=== PATIENT | female | born 1970 | race Caucasian/White ===

== ENCOUNTER 2016-11-14 20:40 | Emergency (ER) | payer OTHER, MEDICAID ==
[~2016-11-14] VITALS: Ht 160 cm; Wt 106.2 kg
[~2016-11-14 20:40] MED LIST: AMOX875 PO; BENZ1TAB PO; CORTIS10A EACH EAR; HALO1TAB25 PO; PROZ20CA11 PO; TRAZ100 PO
[2016-11-14 20:51] VITALS: BP 138/74; PULSE 85; RESP 16; TEMP 98.9; O2SAT 97
--- NOTE | 2016-11-14 22:10 | PD ---
HPI Chief Complaint: ENT Complaint Time Seen by Provider: 21:34 Travel History International Travel<30 days: No Contact w/Intl Traveler<30days: No Traveled to known affect area: No History of Present Illness HPI 46-year-old female presents to the emergency room for evaluation of bilateral ear pain for the past week. Patient states left is worse than right. She has not been taking anything for her symptoms. She had leftover eardrops that she applied to her left ear which slightly relieved her pain. Pain is severe and worse with any range of motion of the jaw or swallowing. It radiates into her neck. She denies any fever, chills, nausea, vomiting, or drainage. No associated upper respiratory symptoms. She has not been swimming lately. PFSH Past Medical History Bipolar Disorder: Yes Anxiety: Yes Depression: Yes Cancer: No Cardiovascular Problems: Yes High Cholesterol: Yes Chest Pain: Yes Coronary Artery Disease: No Diabetes: No Diminished Hearing: No Endocrine: Yes Gastrointestinal Disorders: Yes GERD: Yes Genitourinary: No Immune Disorder: No Implanted Vascular Access Dvce: No Insomnia: Yes Musculoskeletal: No Neurologic: No Psychiatric: Yes (schizophenia ) Reproductive: No Respiratory: Yes Integumentary: Yes Immunizations Current: Yes Schizophrenia: Yes (PER DR TAPIA) Sleep Apnea: Yes (CPAP, hasn't used in at least 6mths) Thyroid Disease: Yes (hasn't been taking her thyroid med) Tetanus Vaccination: Unknown Influenza Vaccination: Yes ?: Unknown Menopausal: Yes : 4 Para: 2 Miscarriage: 1 : 1 Past Surgical History Section: Yes (2) Gynecologic Surgery: Yes (2 C SECTIONS) Oral Surgery: Yes Other Surgery: Yes Social History Alcohol Use: No Tobacco Use: Yes (1 PPD) Substance Use: No Allergies-Medications (Allergen,Severity, Reaction): Coded Allergies: No Known Allergies (Verified , 11/14/16) Reported Meds & Prescriptions Reported Meds & Active Scripts Active Amoxil (Amoxicillin) 875 Mg Tab 875 Mg PO BID 10 Days Cortisporin Otic Suspension (Neomycin/Polymyxin/Hydrocortisone) 10 Ml Susp 4 Drop EACH EAR QID 7 Days Reported Haldol (Haloperidol) 2 Mg Tab 2 Mg PO BID Cogentin (Benztropine Mesylate) 1 Mg Tab 4 Mg PO DAILY Trazodone Hcl (Trazodone HCl) 100 Mg Tab 400 Mg PO HS Prozac (Fluoxetine HCl) 20 Mg Cap 20 Mg PO BID Review of Systems Except as stated in HPI: all other systems reviewed are Neg Physical Exam Narrative GENERAL: Well-nourished, well-developed female in no acute distress. Afebrile. Ambulatory. SKIN: Focused skin assessment warm/dry. HEAD: Normocephalic. EYES: No scleral icterus. No injection or drainage. EARS: Bilateral pinnae and external canals appear within normal limits. There is some purulent drainage just outside bilateral eardrums. Bilateral tympanic membranes are erythematous and dull with some drainage but no perforation. NECK: Supple, trachea midline. No JVD or lymphadenopathy. CARDIOVASCULAR: Regular rate and rhythm without murmurs, gallops, or rubs. RESPIRATORY: Breath sounds equal bilaterally. No accessory muscle use. Data Data Last Documented VS Vital Signs Date Time Temp Pulse Resp B/P (MAP) Pulse Ox O2 Delivery O2 Flow Rate FiO2 11/14/16 20:51 98.9 85 16 138/74 (95) 97 MDM Medical Decision Making Medical Screen Exam Complete: Yes Emergency Medical Condition: Yes Medical Record Reviewed: Yes Differential Diagnosis Otitis media, otitis externa, eustachian tube dysfunction Narrative Course 46-year-old female presents to the emergency room for evaluation of bilateral ear pain and left worse than right for the past week. Patient denies any swimming recently. Denies fevers or ear drainage. Physical exam reveals bilateral tympanic membranes are erythematous and dull without perforation. There is drainage just outside bilateral eardrums that could be due to very slight perforation or concurrent otitis externa. There is very subtle preauricular lymphadenopathy of the right that is extremely tender to palpation. Patient will be treated for externa and otitis media with Cipro drops and amoxicillin. Told to follow up with her primary care physician or return for worsening symptoms. She understands and agrees to plan. Diagnosis Primary Impression: Otitis media Qualified Codes: H66.003 - Acute suppurative otitis media without spontaneous rupture of ear drum, bilateral Referrals: Primary Care Physician Additional Instructions: Rest and drink plenty of fluids. Take amoxicillin as directed, until gone. Apply drops twice daily for 7 days. Take ibuprofen with food as directed, as needed for pain. Apply ice to the affected area for 20 minutes at a time, as needed for pain and swelling. Follow-up with a primary care physician. Return to the emergency room for worsening symptoms. Med/Other Pt SpecificInfo: Prescription(s) given Scripts Amoxicillin (Amoxicillin) 875 Mg Tab 875 MG PO BID for Infection for 7 Days, TAB 0 Refills Prov: Sierra Cueva MD 11/14/16 Ciprofloxacin-Hydrocortisone Otic Drops (Cipro Hc Otic Drops) 0.2-1% Susp 3 DROP EACH EAR BID for Infection, #1 BOTTLE 0 Refills Prov: Sierra Cueva MD 11/14/16 Disposition: 01 DISCHARGE HOME Condition: Stable Renetta Falk Nov 14, 2016 22:10
[2016-11-14] MEDS ORDERED: CIPRHC10A EACH EAR (22:11)
[2016-11-14] MEDS ORDERED: AMOX875T PO (22:11)
[2016-11-14] MEDS ORDERED: IBUP-232 PO (22:13)
== END 2016-11-14 22:34 | disposition home or self-care (01) ==
LOC: PHEFT 20:40
DX: H66.003 Acute suppurative otitis media without spontaneous rupture of ear drum, bilateral (principal); F17.200 Nicotine dependence, unspecified, uncomplicated
CPT/HCPCS: 99284

== ENCOUNTER 2017-01-30 20:18 | Inpatient (IN) | payer OTHER, MEDICAID, MEDICARE ==
[~2017-01-30] VITALS: Ht 160 cm; Wt 97.1 kg
[~2017-01-30 20:18] MED LIST changes: +AMOX875T PO; +CIPRHC10A EACH EAR; +IBUP-232 PO
[2017-01-30 20:20] VITALS: BP 142/74; PULSE 85; RESP 16; TEMP 98.4; O2SAT 96
[2017-01-30 23:04] LABS: AUTOMATED NEUTROPHIL # 8.6 TH/MM3 (1.8-7.7); BASOPHIL # 0.1 TH/MM3 (0-0.2); BASOPHIL % 0.8 % (0.0-2.0); EOSINOPHIL # 0.1 TH/MM3 (0-0.4); EOSINOPHIL % 0.6 % (0.0-4.0); HEMATOCRIT 39.8 % (35.0-46.0); HEMO FLAGS DIFF FINAL; LYMPH % 16.8 % (9.0-44.0); LYMPHOCYTE # 1.9 TH/MM3 (1.0-4.8); MEAN CELL VOLUME 88.6 FL (80.0-100.0); MEAN CORPUSCULAR HEMOGLOBIN 29.2 PG (27.0-34.0); NEUT % 76.8 % (16.0-70.0); PLATELET COUNT 201 TH/MM3 (150-450); WHITE BLOOD COUNT 11.2 TH/MM3 (4.0-11.0)
--- NOTE | 2017-01-30 23:17 | PD ---
HPI Chief Complaint: Psychiatric Symptoms Time Seen by Provider: 23:09 Travel History International Travel<30 days: No Contact w/Intl Traveler<30days: No Traveled to known affect area: No History of Present Illness HPI 46-year-old female requesting psychiatric evaluation. Patient has history of schizoaffective disorder and major depressive disorder. Patient has been taking her medications as directed including Chrisney . Patient states that she has been hearing voices telling her bad things, increasing depression and having suicidal thoughts. Patient denies any headache. Patient denies any chest pain or shortness of breath. Patient denies abdominal pain. Patient denies any focal weakness or numbness of extremity. Patient denies any nausea vomiting diarrhea. PFSH Past Medical History Bipolar Disorder: Yes Anxiety: Yes Depression: Yes Cancer: No Cardiovascular Problems: Yes High Cholesterol: Yes Chest Pain: Yes Coronary Artery Disease: No Diabetes: No Diminished Hearing: No Endocrine: Yes Gastrointestinal Disorders: Yes GERD: Yes Genitourinary: No Immune Disorder: No Implanted Vascular Access Dvce: No Insomnia: Yes Musculoskeletal: No Neurologic: No Psychiatric: Yes (schizophenia ) Reproductive: No Respiratory: Yes Integumentary: Yes Immunizations Current: Yes Schizophrenia: Yes (PER DR TAPIA) Sleep Apnea: Yes (CPAP, hasn't used in at least 6mths) Thyroid Disease: Yes (hasn't been taking her thyroid med) ?: Not Menopausal: Yes : 4 Para: 2 Miscarriage: 1 : 1 Past Surgical History Section: Yes (2) Gynecologic Surgery: Yes (2 C SECTIONS) Oral Surgery: Yes Other Surgery: Yes Social History Alcohol Use: No Tobacco Use: Yes (1 PPD) Substance Use: No Allergies-Medications (Allergen,Severity, Reaction): Coded Allergies: No Known Allergies (Verified , 11/14/16) Reported Meds & Prescriptions Reported Meds & Active Scripts Active Ibuprofen 600 Mg Tab 600 Mg PO Q8HR PRN Amoxicillin 875 Mg Tab 875 Mg PO BID 7 Days Cipro Hc Otic Drops (Ciprofloxacin/Hydrocortisone) 0.2-1% Susp 3 Drop EACH EAR BID Amoxicillin 875 Mg Tab 875 Mg PO BID 10 Days Cortisporin Otic Suspension (Neomycin/Polymyxin/Hydrocortisone) 10 Ml Susp 4 Drop EACH EAR QID 7 Days Reported Haldol (Haloperidol) 2 Mg Tab 2 Mg PO BID Benztropine Mesylate 1 Mg Tab 4 Mg PO DAILY Trazodone HCl 100 Mg Tab 400 Mg PO HS Prozac (Fluoxetine HCl) 20 Mg Cap 20 Mg PO BID Review of Systems General / Constitutional: No: Fever Eyes: No: Visual changes HENT: No: Headaches Cardiovascular: No: Chest Pain or Discomfort Respiratory: No: Shortness of Breath Gastrointestinal: No: Abdominal Pain Genitourinary: No: Dysuria Musculoskeletal: No: Pain Skin: No Rash Neurologic: No: Weakness Psychiatric: Positive: Depression, Suicidal Ideations Endocrine: No: Polydipsia Hematologic/Lymphatic: No: Easy Bruising Physical Exam Narrative GENERAL: Well-nourished, well-developed patient. SKIN: Focused skin assessment warm/dry. HEAD: Normocephalic. EYES: No scleral icterus. No injection or drainage. NECK: Supple, trachea midline. No JVD or lymphadenopathy. CARDIOVASCULAR: Regular rate and rhythm without murmurs, gallops, or rubs. RESPIRATORY: Breath sounds equal bilaterally. No accessory muscle use. GASTROINTESTINAL: Abdomen soft, non-tender, nondistended. MUSCULOSKELETAL: No cyanosis, or edema. BACK: Nontender without obvious deformity. No CVA tenderness. Neurologic exam normal. Data Data Last Documented VS Vital Signs Date Time Temp Pulse Resp B/P (MAP) Pulse Ox O2 Delivery O2 Flow Rate FiO2 01/30/17 20:20 98.4 85 16 142/74 (96) 96 Orders Orders Complete Blood Count With Diff (01/30/17 20:30) Comprehensive Metabolic Panel (01/30/17 20:30) Psych Screen (01/30/17 20:30) Drug Screen, Random Urine (01/30/17 20:30) Alcohol (Ethanol) (01/30/17 20:30) Chrisney (Li) (01/30/17 22:48) Labs Laboratory Tests Test 01/30/17 22:45 White Blood Count 11.2 TH/MM3 Red Blood Count 4.50 MIL/MM3 Hemoglobin 13.1 GM/DL Hematocrit 39.8 % Mean Corpuscular Volume 88.6 FL Mean Corpuscular Hemoglobin 29.2 PG Mean Corpuscular Hemoglobin Concent 33.0 % Red Cell Distribution Width 16.0 % Platelet Count 201 TH/MM3 Mean Platelet Volume 9.2 FL Neutrophils (%) (Auto) 76.8 % Lymphocytes (%) (Auto) 16.8 % Monocytes (%) (Auto) 5.0 % Eosinophils (%) (Auto) 0.6 % Basophils (%) (Auto) 0.8 % Neutrophils # (Auto) 8.6 TH/MM3 Lymphocytes # (Auto) 1.9 TH/MM3 Monocytes # (Auto) 0.6 TH/MM3 Eosinophils # (Auto) 0.1 TH/MM3 Basophils # (Auto) 0.1 TH/MM3 CBC Comment DIFF FINAL Differential Comment MDM Medical Decision Making Medical Screen Exam Complete: Yes Emergency Medical Condition: Yes Differential Diagnosis Differential diagnosis including schizoaffective disorder, depression, suicidal Narrative Course 46-year-old female with history of schizoaffective disorder and major depression , has been hearing voices and having suicidal thoughts. Pranav Jaimes MD Jan 30, 2017 23:17
[2017-01-30] MEDS ORDERED: PANT20TA2 PO (23:29)
[2017-01-30] MEDS ORDERED: CLON1TAB PO (23:29)
[2017-01-30] MEDS ORDERED: AMAN100T PO (23:29)
[2017-01-30] MEDS ORDERED: PROZ40CA PO (23:29)
[2017-01-30] MEDS ORDERED: PRAM0.25 PO (23:29)
[2017-01-30] MEDS ORDERED: FURO20TA PO (23:29)
[2017-01-30] MEDS ORDERED: TRAZ300T2 PO (23:29)
[2017-01-30] MEDS ORDERED: LURA80 PO (23:29)
[2017-01-30] MEDS ORDERED: FOLI400T PO (23:29)
[2017-01-30] MEDS ORDERED: POTA10CA PO (23:29)
[2017-01-30] MEDS ORDERED: HALO10TA PO (23:29)
[2017-01-30 23:31] LABS: ALT (GPT) 15 U/L (10-53); ANION GAP 7 MEQ/L (5-15); AST (GOT) 11 U/L (15-37); BLOOD UREA NITROGEN 16 MG/DL (7-18); CHLORIDE 100 MEQ/L (98-107); GLOMERULAR FILTRATION RATE 54 ML/MIN (>89); POTASSIUM 3.6 MEQ/L (3.5-5.1); SODIUM (NA) 138 MEQ/L (136-145)
[2017-01-30 23:35] LABS: ALCOHOL LESS THAN 3 MG/DL (0-5)
[2017-01-30 23:38] LABS: ALKALINE PHOSPHATASE 135 U/L (45-117); TOTAL BILIRUBIN ADULT 0.1 MG/DL (0.2-1.0)
[2017-01-31] MEDS ORDERED: LITH300C2 PO (01:18)
[2017-01-31] MEDS ORDERED: LORazepam 2 MG/ML VIAL IM PRN (02:00)
[2017-01-31] MEDS ORDERED: ALUMINUM/MAGNESIUM/SIMETH 30 ML CUP PO PRN ×2 (02:00→12:45)
[2017-01-31] MEDS ORDERED: ACETAMINOPHEN 325 MG TAB PO PRN (02:00)
[2017-01-31] MEDS ORDERED: traZODone HCL 50 MG TAB PO PRN (02:00)
[2017-01-31] MEDS ORDERED: diphenhydrAMINE HCL 50 MG CAP PO PRN ×2 (02:00→12:45)
[2017-01-31] MEDS ORDERED: diphenhydrAMINE HCL 50 MG/ML VIAL IM PRN (02:00)
[2017-01-31] MEDS ORDERED: MAGNESIUM HYDROXIDE SUSP 30 ML CUP PO PRN ×2 (02:00→12:45)
[2017-01-31] MEDS ORDERED: diphenhydrAMINE HCL 50 MG/ML VIAL - HS PRN IM (02:00)
[2017-01-31 02:30] VITALS: BP 139/77; PULSE 71; RESP 18; TEMP 97.9; O2SAT 94
[2017-01-31 06:53] VITALS: BP 109/59; PULSE 72; RESP 18; TEMP 97.7; O2SAT 94
[2017-01-31 08:31] LABS: BICARBONATE 21.8 MEQ/L (21.0-32.0); POTASSIUM 4.3 MEQ/L (3.5-5.1)
[2017-01-31 08:54] LABS: HDL CHOLESTEROL 43.4 MG/DL (40.0-60.0)
[2017-01-31] MEDS: AMANTADINE HCL 100 MG CAP PO SCH ×2 (09:00→22:05)
[2017-01-31] MEDS ORDERED: FOLIC ACID 1 MG TAB PO SCH (09:00)
[2017-01-31] MEDS ORDERED: FUROSEMIDE 20 MG TAB PO SCH (09:00)
[2017-01-31] MEDS: FLUoxetine HCL 20 MG CAP PO SCH (09:52)
[2017-01-31] MEDS: PANTOPRAZOLE SOD 20 MG DELAYED RELEASE TAB PO SCH (09:53)
[2017-01-31] MEDS: LITHIUM CARBONATE 300 MG CAP PO SCH ×2 (09:53→21:00)
[2017-01-31] MEDS: LURASIDONE 80 MG TAB PO SCH (09:53)
[2017-01-31] MEDS: HALOPERIDOL 10 MG TAB PO SCH ×2 (09:53→22:04)
[2017-01-31] MEDS: POTASSIUM CHLORIDE 10 MEQ CONTROLLED RELEASE TAB PO SCH ×2 (09:53→22:05)
[2017-01-31] MEDS: NICOTINE 21 MG/24 HR PATCH T-DERMAL SCH (09:54)
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
[2017-01-31 18:27] VITALS: BP 132/83; PULSE 73; RESP 17; TEMP 97; O2SAT 96
[2017-01-31] MEDS ORDERED: POTASSIUM CHLORIDE 10 MEQ CAP PO SCH (21:00)
[2017-01-31] MEDS: REMOVE OLD NICOTINE PATCH T-DERMAL SCH (21:00)
[2017-01-31] MEDS ORDERED: AMANTADINE HCL 100 MG CAP PO SCH (21:00)
[2017-01-31] MEDS ORDERED: HALOPERIDOL 10 MG TAB PO SCH (21:00)
[2017-01-31] MEDS ORDERED: LITHIUM CARBONATE 300 MG CAP PO SCH (21:00)
[2017-01-31] MEDS ORDERED: PRAMIPEXOLE DIHYDROCHLORIDE 0.25 MG TAB PO SCH (21:00)
[2017-01-31] MEDS: traZODone HCL 100 MG TAB PO SCH (22:04)
[2017-01-31] MEDS: FUROSEMIDE 20 MG TAB PO SCH (22:04)
[2017-01-31 22:05] LABS: HEMOGLOBIN A1a 1.1 %; HEMOGLOBIN A1b 0.9 %; HEMOGLOBIN F 0.9 %; HEMOGLOBIN LA1C 1.4 %; HEMOGLOBIN P3 3.4 %
[2017-01-31] MEDS: PRAMIPEXOLE DIHYDROCHLORIDE 0.25 MG TAB PO SCH (22:07)
[2017-02-01] MEDS: LORazepam 1 MG TAB PO PRN (03:47)
[2017-02-01 06:42] VITALS: BP 139/63; PULSE 75; RESP 16; TEMP 97.4; O2SAT 96
[2017-02-01] MEDS: NICOTINE 21 MG/24 HR PATCH T-DERMAL SCH (08:33)
[2017-02-01] MEDS: POTASSIUM CHLORIDE 10 MEQ CONTROLLED RELEASE TAB PO SCH ×2 (08:34→20:07)
[2017-02-01] MEDS: FLUoxetine HCL 20 MG CAP PO SCH (08:34)
[2017-02-01] MEDS: AMANTADINE HCL 100 MG CAP PO SCH ×2 (08:35→20:06)
[2017-02-01] MEDS: LURASIDONE 80 MG TAB PO SCH (08:35)
[2017-02-01] MEDS: HALOPERIDOL 10 MG TAB PO SCH ×2 (08:35→20:07)
[2017-02-01] MEDS: FOLIC ACID 1 MG TAB PO SCH (08:35)
[2017-02-01] MEDS: PANTOPRAZOLE SOD 20 MG DELAYED RELEASE TAB PO SCH (08:35)
[2017-02-01] MEDS: FUROSEMIDE 20 MG TAB PO SCH ×2 (08:36→20:06)
[2017-02-01] MEDS: LITHIUM CARBONATE 300 MG CAP PO SCH (08:36)
[2017-02-01] MEDS ORDERED: PANTOPRAZOLE SOD 20 MG DELAYED RELEASE TAB PO SCH (09:00)
[2017-02-01] MEDS ORDERED: LURASIDONE 80 MG TAB PO SCH (09:00)
[2017-02-01] MEDS ORDERED: FLUOXETINE 80 MG PO SCH (09:00)
--- NOTE | 2017-02-01 11:00 | HHI.PYPN ---
Subjective Chief Complaint: increased depression with auditory hallucinations and suicidal ideation int Remarks Patient seen in her room with nurse Tete, patient states voices persist, are still somewhat intrusive, but she no longer has thoughts white to kill her sister boyfriend or anyone and the voices are no longer telling her to kill anyone. She still remains quite depressed with still take the suicide pill if offered. For now we will increase patient's Haldol from 10 mg twice a day to 10 mg a.m. 5 mg one p.m. and 10 mg p.m., lithium level drawn this morning was 0.5 will increase lithium to 450 mg twice a day check blood level on 02/05. Continue other medications no change Review of Systems Except as stated in HPI: all other systems reviewed are Neg Mental Status Examination Appearance: Appropriate Consciousness: Alert Orientation: x4 Motor Activity: Normal gait Speech: Unremarkable Language: Adequate Fund of Knowledge: Adequate Attention and Concentration: Other (fair) Memory: Unremarkable Mood: Sad, Anxious (mildly so) Affect: Other (decreased range and intensity) Thought Process & Associations: Intact Thought Content: Hallucinations Hallucination Type: Auditory (threatening and intimidating) Delusion Type: None Suicidal Ideation: Yes Suicidal Plan: Yes (patient states would take the suicide pill if offered) Suicidal Intention: Yes (patient states would take the suicide pill if offered) Homicidal Ideation: No Homicidal Plan: No Homicidal Intention: No Insight: Poor Judgment: Poor Results Labs Test 02/01/17 06:12 [place] Level 0.5 MEQ/L Vitals/IOs Vital Signs Date Time Temp Pulse Resp B/P (MAP) Pulse Ox O2 Delivery O2 Flow Rate FiO2 02/01/17 06:42 97.4 75 16 139/63 (88) 96 Assessment & Plan Problem List: (1) Schizoaffective disorder ICD Codes: F25.9 - Schizoaffective disorder Status: Chronic Assessment & Plan Estimated LOS: days patient remains depressed psychotic and suicidal, compliant medications. She medication adjustment above Justification for Cont. Inpt. At this time patient will decompensate if placed in the lower level of care Discharge Planning Return home follow-up outpatient services Request HC Surrog/Guard Advoc?: No Problem Qualifiers (1) Schizoaffective disorder: Qualified Codes: F25.0 - Schizoaffective disorder, bipolar type Jameel Sampson MD Feb 01, 2017 10:59
--- NOTE | 2017-02-01 11:26 | PD.PSY.CON ---
Provisional Diagnosis Admission Date Jan 31, 2017 at 01:36 Sanford I. 1. Schizoaffective disorder, bipolar type Sanford II. Deferred History of Present Illness Service Psychiatry Consult Requested By Dr. Sampson Reason for Consult Second opinion for involuntary psychiatric hospitalization Primary Care Physician Non-Staff HPI From Dr. Sampson's H&P: Patient is a 46-year-old obese white female comes here voluntarily with complaints of increased depression with increased command demanding auditory hallucinations, and suicidal ideation intent and plan. Patient is a client with [facility] she did see her [facility] clinician last Sunday. Though minimized her issues. At the present time patient sitting quietly in her room counselor Trina present throughout session patient stating she has had increased depression of the past few weeks with initial and mid insomnia, depressed mood, increased crying spells, a.m. anergy, decreased appetite. Decreased concentration and attention. Increased isolation. Is also some moderate decrease in her coping skills. There are increased auditory hallucinations of a command intimidating nature. She denies any alcohol or drug use related to this. She does states would take the suicide pill if offered to her of interest a compounding factor with this is the fact that patient has lived with her sister for over a year. During that period of time patient's relationship with her sister's boyfriend also lives with them has become more difficult to the point of the sisters asked her to leave. Patient will be moving of the end of February 23 part of March to live with a friend. She states this is okay with her but she also acknowledges being somewhat abandoned by her sister. Patient also is a regular attendee of the [facility] outpatient support groups. Patient states she has been has a left her Prevacid her difficulty with a mental health the behavioral issues. She has 2 adult children she has contact with one of them. At the present time patient does meet criteria for further inpatient psychiatric assessment monitoring and observation. We'll continue her on a voluntary basis she is willing to stay to get further care patient lithium level drawn late last night commitment 0.3 will repeat level in the morning. We 'll continue other medications no change through today and further observe. Hopeless to be a fairly short stay and return her to the community and to her family On my examination today: Patient seen and examined with nurse. Chart reviewed. Case discussed with nursing staff. On my examination today, the patient presents as quite anhedonic and withdrawn. She endorses 1.5 weeks of worsening depression and deprecatory auditory hallucinations along with command auditory hallucinations to self injure. She endorses ongoing suicidal ideation. She endorses sleep and appetite are decreased. No delusional material elicited. No hypomanic or manic symptoms. She is requesting discharge from the hospital, but when I ask what she would do if she were released she says "I'd probably kill myself." Past psychiatric history: Patient reports a history of depression with first hospitalization at age 15. She endorses multiple prior suicide attempts including previous attempts by hanging. Family history: The patient reports a family history of depression in her father who completed suicide by gunshot wound. Chemical dependency history: The patient denies any abuse of drugs or alcohol. Social history: Patient lives with her sister. She is with 2 children. She has 2 years of college. She is on disability. Review of Systems ROS Limitations: Psychotic Except as stated in HPI: all other systems reviewed are Neg Past Family Social History Coded Allergies: No Known Allergies (Verified Allergy, Unknown, 01/31/17) Past Medical History see electronic medical record Reported Medications Rodey Carbonate (Rodey Carbonate) 300 Mg Cap, 300 MG PO BID, CAP 0 Refills 01/31/17 Potassium Chloride ER (Potassium Chloride ER) 10 Meq Cap, 10 MEQ PO BID for Electrolyte Replacement, #60 CAP 0 Refills 01/30/17 Furosemide (Furosemide) 20 Mg Tab, 20 MG PO BID, #60 TAB 0 Refills 01/30/17 Folic Acid (Folic Acid) 0.4 Mg Tab, 1 MG PO DAILY for Nutritional Supplement, TAB 0 Refills 01/30/17 Pantoprazole (Pantoprazole) 20 Mg Tab, 20 MG PO DAILY for Reflux, #30 TAB 0 Refills 01/30/17 Clonazepam (Clonazepam) 1 Mg Tab, 1 MG PO HS, #90 TAB 0 Refills 01/30/17 Pramipexole (Pramipexole) 0.25 Mg Tab, 0.25 MG PO HS for Parkinson Disease Mgmt , #30 TAB 0 Refills 01/30/17 Amantadine (Amantadine) 100 Mg Tab, 100 MG PO BID, #60 TAB 0 Refills 01/30/17 Haloperidol (Haloperidol) 10 Mg Tab, 10 MG PO BID, TAB 0 Refills 01/30/17 Lurasidone (Latuda) 80 Mg Tab, 80 MG PO DAILY, #30 TAB 0 Refills 01/30/17 Trazodone (Trazodone) 300 Mg Tab, 400 MG PO HS for Control Depression, #30 TAB 0 Refills 01/30/17 Fluoxetine (Prozac) 40 Mg Cap, 80 MG PO DAILY, #30 CAP 0 Refills 01/30/17 Discontinued Reported Medications Haloperidol (Haldol) 2 Mg Tab, 2 MG PO BID, TAB 06/23/14 Benztropine Mesylate (Benztropine Mesylate) 1 Mg Tab, 4 MG PO DAILY, TAB 08/08/13 Trazodone HCl (Trazodone HCl) 100 Mg Tab, 400 MG PO HS, TAB 08/08/13 Fluoxetine Hcl (Prozac) 20 Mg Cap, 20 MG PO BID, CAP 08/08/13 Discontinued Scripts Ibuprofen (Ibuprofen) 600 Mg Tab, 600 MG PO Q8HR Y for PAIN, #21 TAB 0 Refills Prov:Sierra Cueva MD 11/14/16 Amoxicillin (Amoxicillin) 875 Mg Tab, 875 MG PO BID for Infection for 7 Days, TAB 0 Refills Prov:Sierra Cueva MD 11/14/16 Ciprofloxacin-Hydrocortisone Otic Drops (Cipro Hc Otic Drops) 0.2-1% Susp, 3 DROP EACH EAR BID for Infection, #1 BOTTLE 0 Refills Prov:Sierra Cueva MD 11/14/16 Amoxicillin (Amoxicillin) 875 Mg Tab, 875 MG PO BID for 10 Days, TAB Prov:Rodolfo Ortiz MD 11/23/14 Neomycin/Polymyxin/Hydrocort (Cortisporin Otic Suspension) 10 Ml Susp, 4 DROP EACH EAR QID for 7 Days, ML Prov:Rodolfo Ortiz MD 11/23/14 Current Medications Medications (Trade) Dose Ordered Sig/Damon Route Start Time Stop Time Status Last Admin (Ativan) 1 mg Q6H PRN PO 01/31/17 02:00 02/01/17 03:47 (Ativan Inj) 1 mg Q6H PRN IM 01/31/17 02:00 (Benadryl) 50 mg Q6H PRN PO 01/31/17 02:00 (Benadryl Inj) 50 mg Q6H PRN IM 01/31/17 02:00 (Benadryl) 50 mg HS PRN PO 01/31/17 02:00 (Benadryl Inj) 50 mg HS PRN IM 01/31/17 02:00 (Habitrol 21 Mg Patch.24 Hr) 1 patch DAILY T-DERMAL 01/31/17 09:00 02/01/17 08:33 Miscellaneous Information 1 HS T-DERMAL 01/31/17 21:00 01/31/17 21:00 (PROzac) 80 mg DAILY PO 01/31/17 09:00 02/01/17 08:34 (Latuda) 80 mg DAILY PO 01/31/17 09:00 02/01/17 08:35 (Symmetrel) 100 mg BID PO 01/31/17 09:00 02/01/17 08:35 (Mirapex) 0.25 mg HS PO 01/31/17 21:00 01/31/17 22:07 (Protonix) 20 mg DAILY PO 01/31/17 09:00 02/01/17 08:35 (KCl) 10 meq BID PO 01/31/17 09:00 02/01/17 08:34 (Tylenol) 650 mg Q4H PRN PO 01/31/17 12:45 (Milk Of Magnesia Liq) 30 ml DAILY PRN PO 01/31/17 12:45 (Mag-Al Plus Susp Liq) 30 ml Q6H PRN PO 01/31/17 12:45 (Atarax) 50 mg Q6H PRN PO 01/31/17 12:45 (Folate) 1 mg DAILY PO 02/01/17 09:00 02/01/17 08:35 (Lasix) 20 mg BID PO 01/31/17 21:00 02/01/17 08:36 (Desyrel) 400 mg HS PO 01/31/17 21:00 01/31/17 22:04 (Haldol) 10 mg DAILY@0900,2100 PO 02/01/17 21:00 (Eskalith Sr) 450 mg BID PO 02/01/17 21:00 (Haldol) 5 mg DAILY@1400 PO 02/01/17 14:00 Family Psych History See above Social History See above Patient's Strengths (min. 2) In a monitored setting. Verbally fluent. Physical Exam Physical exam was completed by the ED provider. On my examination today, the patient appears to be in no acute physical distress. No motor abnormalities noted. Labs and vitals reviewed: Vital Signs Vital Signs Date Time Temp Pulse Resp B/P (MAP) Pulse Ox O2 Delivery O2 Flow Rate FiO2 02/01/17 06:42 97.4 75 16 139/63 (88) 96 Lab Results Item Value Date Time White Blood Count 11.2 TH/MM3 H 01/30/172244 Hemoglobin 13.1 GM/DL 01/30/172244 Platelet Count 201 TH/MM3 01/30/175 Sodium Level 138 MEQ/L 01/31/17 0716 Potassium Level 4.3 MEQ/L 01/31/17 0716 Chloride Level 106 MEQ/L 01/31/17 0716 Carbon Dioxide Level 21.8 MEQ/L # 01/31/17 0716 Blood Urea Nitrogen 14 MG/DL 01/31/17 0716 Creatinine 0.80 MG/DL 01/31/17 0716 Random Glucose 83 MG/DL 01/31/17 0716 Aspartate Amino Transf (AST/SGOT) 11 U/L L 01/30/17 2245 Alanine Aminotransferase (ALT/SGPT) 15 U/L 01/30/175 Alkaline Phosphatase 135 U/L H 01/30/175 Rodey Level 0.5 MEQ/L 02/01/17 0612 Mental Status Examination Appearance: Appropriate Consciousness: Alert Orientation: Person, Place (at least) Motor Activity: Other (no motor abnormalities noted) Speech: Slow Language: Adequate Fund of Knowledge: Adequate Attention and Concentration: Other (fair) Memory: Unremarkable (grossly intact on clinical exam) Mood: Sad Affect: Other (restricted and consistent with stated mood) Thought Process & Associations: Intact Thought Content: Hallucinations Hallucination Type: Auditory (deprecatory and command auditory hallucinations) Delusion Type: None Suicidal Ideation: Yes Suicidal Plan: No Suicidal Intention: Yes Homicidal Ideation: No Homicidal Plan: No Homicidal Intention: No Insight: Poor Judgment: Poor Assessment & Plan Problem List: (1) Schizoaffective disorder ICD Codes: F25.9 - Schizoaffective disorder Status: Chronic Assessment & Plan Given the circumstances of patient's presentation here, and her presentation on my examination today, I concur with Dr. Sampson that the patient meets criteria for involuntary psychiatric hospitalization under the [place] act. I have completed the second opinion paperwork. Further care as per Dr. Sampson. Thank you very much for this consultation. Signing off. Problem Qualifiers (1) Schizoaffective disorder: Qualified Codes: F25.0 - Schizoaffective disorder, bipolar type Av Wagner MD Feb 01, 2017 11:26
[2017-02-01] MEDS: HALOPERIDOL 5 MG TAB PO SCH (15:11)
[2017-02-01 16:54] VITALS: BP 131/86; PULSE 77; RESP 17; TEMP 97.7; O2SAT 99
[2017-02-01] MEDS: LITHIUM CARBONATE 450 MG CONTROLLED RELEASE TAB PO SCH (20:06)
[2017-02-01] MEDS: traZODone HCL 100 MG TAB PO SCH (20:06)
[2017-02-01] MEDS: REMOVE OLD NICOTINE PATCH T-DERMAL SCH (20:07)
[2017-02-01] MEDS: PRAMIPEXOLE DIHYDROCHLORIDE 0.25 MG TAB PO SCH (20:07)
[2017-02-02] MEDS: LORazepam 1 MG TAB PO PRN ×2 (02:56→14:06)
[2017-02-02 03:15] VITALS: BP 109/60; PULSE 94; RESP 18; TEMP 98.5; O2SAT 94
[2017-02-02 05:55] VITALS: BP 108/69; PULSE 77; RESP 18; TEMP 97.7; O2SAT 93
[2017-02-02] MEDS: AMANTADINE HCL 100 MG CAP PO SCH ×2 (08:27→21:22)
[2017-02-02] MEDS: LURASIDONE 80 MG TAB PO SCH (08:27)
[2017-02-02] MEDS: PANTOPRAZOLE SOD 20 MG DELAYED RELEASE TAB PO SCH (08:27)
[2017-02-02] MEDS: POTASSIUM CHLORIDE 10 MEQ CONTROLLED RELEASE TAB PO SCH ×2 (08:27→21:22)
[2017-02-02] MEDS: NICOTINE 21 MG/24 HR PATCH T-DERMAL SCH (08:28)
[2017-02-02] MEDS: FOLIC ACID 1 MG TAB PO SCH (08:28)
[2017-02-02] MEDS: LITHIUM CARBONATE 450 MG CONTROLLED RELEASE TAB PO SCH ×2 (08:28→21:21)
[2017-02-02] MEDS: FUROSEMIDE 20 MG TAB PO SCH ×2 (08:28→21:20)
[2017-02-02] MEDS: FLUoxetine HCL 20 MG CAP PO SCH (08:28)
[2017-02-02] MEDS: HALOPERIDOL 10 MG TAB PO SCH ×2 (08:30→21:00)
[2017-02-02] MEDS: ACETAMINOPHEN 325 MG TAB PO PRN (10:45)
--- NOTE | 2017-02-02 13:38 | HHI.PYPN ---
Subjective Chief Complaint: increased depression with auditory hallucinations and suicidal ideation int Remarks Patient seen in her room with the one-to-one sitter, chart review, patient compliant medications. It appears patient's multiple then 2 razor blades onto the unit. She inflicted laceration to her left wrist with them. He was discovered and wound dressed by the nurse. Patient placed on one-to-one's. When asked today about this she said the voices were getting worse. When asked the motivation for smoking of the razor blades the waiting for a few days before using them is unable to answer that question. Patient continues to voice auditory hallucinations, depression, and suicidality. Patient had medication adjustments yesterday will need to observe her their effects, need to continue the one-to-one Review of Systems Except as stated in HPI: all other systems reviewed are Neg Mental Status Examination Appearance: Appropriate Consciousness: Alert Orientation: Person, Place (at least) Motor Activity: Other (no motor abnormalities noted) Speech: Slow Language: Adequate Fund of Knowledge: Adequate Attention and Concentration: Other (fair) Memory: Unremarkable (grossly intact on clinical exam) Mood: Sad Affect: Other (restricted and consistent with stated mood) Thought Process & Associations: Intact Thought Content: Hallucinations Hallucination Type: Auditory (deprecatory and command auditory hallucinations) Delusion Type: None Suicidal Ideation: Yes Suicidal Plan: Yes (patient just lacerated wrists with razor blades that she smuggled onto the unit) Suicidal Intention: Yes Homicidal Ideation: No Homicidal Plan: No Homicidal Intention: No Insight: Poor Judgment: Poor Results Vitals/IOs Vital Signs Date Time Temp Pulse Resp B/P (MAP) Pulse Ox O2 Delivery O2 Flow Rate FiO2 02/02/17 05:55 97.7 77 18 108/69 (82) 93 Assessment & Plan Problem List: (1) Schizoaffective disorder ICD Codes: F25.9 - Schizoaffective disorder Status: Chronic Assessment & Plan Estimated LOS: days patient continues depressed psychotic now with self- inflicted lacerations rest Justification for Cont. Inpt. At this time patient decompensate a placed a lower level of care Discharge Planning Patient remains somewhat ambiguous considering her recent self-mutilation Problem Qualifiers (1) Schizoaffective disorder: Qualified Codes: F25.0 - Schizoaffective disorder, bipolar type Jameel Sampson MD Feb 02, 2017 13:38
[2017-02-02] MEDS: HALOPERIDOL 5 MG TAB PO SCH (13:45)
[2017-02-02] MEDS ORDERED: DIPHTH/TETANUS/ACEL PERTUSSIS (BOOSTER) 0.5 ML VIAL/PFS IM ONE (14:15)
--- NOTE | 2017-02-02 14:23 | PD.CONS ---
HPI Service [facility] Consult Requested By DR SANTORO Reason for Consult LACERATION WITH RAZOR BLADE TO LEFT WRIST Primary Care Physician Non-Staff Diagnoses: History of Present Illness 46-year-old female requesting psychiatric evaluation. Patient has history of schizoaffective disorder and major depressive disorder. Patient has been taking her medications as directed including Casper . Patient states that she has been hearing voices telling her bad things, increasing depression and having suicidal thoughts. Patient denies any headache. Patient denies any chest pain or shortness of breath. Patient denies abdominal pain. Patient denies any focal weakness or numbness of extremity. Patient denies any nausea vomiting diarrhea. PATIENT HAD RAZOR BLADES AND CUT HERSELF AT 3AM THIS MORNING IN HER ROOM DW RN AND PT AND PSYCHIATRY Review of Systems Constitutional: DENIES: Diaphoretic episodes, Fatigue, Fever, Weight gain, Weight loss, Chills, Dizziness Endocrine: DENIES: Abnorml menstrual pattern, Heat/cold intolerance, Polydipsia Eyes: DENIES: Blurred vision, Diplopia, Eye inflammation, Eye pain, Vision loss Ears, nose, mouth, throat: DENIES: Tinnitus, Hearing loss, Vertigo, Nasal discharge Respiratory: DENIES: Apneas, Cough, Snoring, Wheezing Cardiovascular: DENIES: Chest pain, Palpitations, Syncope, Dyspnea on Exertion Gastrointestinal: DENIES: Abdominal pain, Black stools, Bloody stools Genitourinary: DENIES: Abnormal vaginal bleeding, Dysmenorrhea Musculoskeletal: DENIES: Joint pain, Muscle aches, Stiffness Integumentary: DENIES: Abnormal pigmentation, Pruritus, Rash Hematologic/lymphatic: DENIES: Bruising, Lymphadenopathy Immunologic/allergic: DENIES: Eczema, Urticaria Neurologic: DENIES: Abnormal gait, Headache, Localized weakness, Paresthesias Psychiatric: COMPLAINS OF: Anxiety, Mood changes, Depression, Agitation, DENIES : Confusion Except as stated in HPI: all other systems reviewed are Neg Past Family Social History Allergies: Coded Allergies: No Known Allergies (Verified Allergy, Unknown, 01/31/17) Past Medical History HYPOTHYROIDISM BIPOLAR, ANXIETY DEPRESSION SCHIZOPHRENIA GERD HYPERTENSION HYPERLIPIDEMIA CAITLIN NONCOMPLIANCE Past Surgical History TEETH REMOVAL Reported Medications Reported Meds & Active Scripts Active Reported Casper Carbonate 300 Mg Cap 300 Mg PO BID Potassium Chloride ER (Potassium Chloride) 10 Meq Cap 10 Meq PO BID Furosemide 20 Mg Tab 20 Mg PO BID Folic Acid 0.4 Mg Tab 1 Mg PO DAILY Pantoprazole (Pantoprazole Sodium) 20 Mg Tab 20 Mg PO DAILY Clonazepam 1 Mg Tab 1 Mg PO HS Pramipexole (Pramipexole Dihydrochloride) 0.25 Mg Tab 0.25 Mg PO HS Amantadine (Amantadine HCl) 100 Mg Tab 100 Mg PO BID Haloperidol 10 Mg Tab 10 Mg PO BID Latuda (Lurasidone) 80 Mg Tab 80 Mg PO DAILY Trazodone (Trazodone HCl) 300 Mg Tab 400 Mg PO HS Prozac (Fluoxetine HCl) 40 Mg Cap 80 Mg PO DAILY Active Ordered Medications Current Medications Lorazepam (Ativan) 1 mg Q6H PRN PO MODERATE TO SEVERE ANXIETY Last administered on 02/02/17t 02:56; Start 01/31/17 at 02:00 Lorazepam (Ativan Inj) 1 mg Q6H PRN IM MODERATE TO SEVERE ANXIETY; Start at 02:00 Diphenhydramine HCl (Benadryl) 50 mg Q6H PRN PO MILD ANXIETY, EPS; Start at 02:00 Diphenhydramine HCl (Benadryl Inj) 50 mg Q6H PRN IM MILD ANXIETY, EPS; Start 01/31/17 at 02:00 Diphenhydramine HCl (Benadryl) 50 mg HS PRN PO INSOMNIA; Start 01/31/17 at 02: 00 Diphenhydramine HCl (Benadryl Inj) 50 mg HS PRN IM INSOMNIA; Start 01/31/17 at 02:00 Trazodone HCl (Desyrel) 50 mg HS PRN PO INSOMNIA; Start 01/31/17 at 02:00; Stop 01/31/17 at 15:02; Status DC Acetaminophen (Tylenol) 650 mg Q4H PRN PO Pain 1-5 or Temp >101F; Start at 02:00; Stop 01/31/17 at 13:59; Status DC Magnesium Hydroxide (Milk Of Magnesia Liq) 30 ml DAILY PRN PO CONSTIPATION; Start 01/31/17 at 02:00; Stop 01/31/17 at 14:08; Status DC Al Hydrox/Mg Hydrox/Simethicone (Mag-Al Plus Susp Liq) 30 ml Q6H PRN PO DYSPEPSIA; Start 01/31/17 at 02:00; Stop 01/31/17 at 13:59; Status DC Nicotine (Habitrol 21 Mg Patch.24 Hr) 1 patch DAILY T-DERMAL Last administered on 02/02/17 08:28; Start 01/31/17 at 09:00 Miscellaneous Information 1 HS T-DERMAL Last administered on 02/01/17 20:07; Start 01/31/17 at 21:00 Fluoxetine HCl (PROzac) 80 mg DAILY PO Last administered on 02/02/17 08:28; Start 01/31/17 at 09:00 Lurasidone HCl (Latuda) 80 mg DAILY PO Last administered on 02/02/17 08:27; Start 01/31/17 at 09:00 Haloperidol (Haldol) 10 mg BID PO Last administered on 02/01/17 08:35; Start 01/31/17 at 09:00; Stop 02/01/17 at 10:48; Status DC Amantadine HCl (Symmetrel) 100 mg BID PO Last administered on 02/02/17 08:27 ; Start 01/31/17 at 09:00 Pramipexole Dihydrochloride (Mirapex) 0.25 mg HS PO Last administered on 20:07; Start 01/31/17 at 21:00 Pantoprazole Sodium (Protonix) 20 mg DAILY PO Last administered on 02/02/17 08:27; Start 01/31/17 at 09:00 Folic Acid (Folate) 1 mg DAILY PO Last administered on 01/31/17 09:53; Start 01/31/17 at 09:00; Stop 01/31/17 at 14:00; Status DC Furosemide (Lasix) 20 mg BID PO Last administered on 01/31/17 09:53; Start at 09:00; Stop 01/31/17 at 14:08; Status DC Potassium Chloride (KCl) 10 meq BID PO Last administered on 02/02/17 08:27; Start 01/31/17 at 09:00 Casper Carbonate (Casper Carbonate) 300 mg BID PO Last administered on 08:36; Start 01/31/17 at 09:00; Stop 02/01/17 at 10:48; Status DC Diphenhydramine HCl (Benadryl) 50 mg HS PRN PO INSOMNIA; Start 01/31/17 at 12: 45; Stop 01/31/17 at 14:10; Status DC Acetaminophen (Tylenol) 650 mg Q4H PRN PO Pain 1-5 or Temp >101F Last administered on 02/02/17 10:45; Start 01/31/17 at 12:45 Magnesium Hydroxide (Milk Of Magnesia Liq) 30 ml DAILY PRN PO CONSTIPATION; Start 01/31/17 at 12:45 Al Hydrox/Mg Hydrox/Simethicone (Mag-Al Plus Susp Liq) 30 ml Q6H PRN PO DYSPEPSIA; Start 01/31/17 at 12:45 Hydroxyzine HCl (Atarax) 50 mg Q6H PRN PO ANXIETY; Start 01/31/17 at 12:45 Amantadine HCl (Symmetrel) 100 mg BID PO ; Start 01/31/17 at 21:00; Stop at 21:00; Status DC Folic Acid (Folate) 1 mg DAILY PO Last administered on 02/02/17 08:28; Start 02/01/17 at 09:00 Furosemide (Lasix) 20 mg BID PO Last administered on 02/02/17 08:28; Start 01/31/17 at 21:00 Haloperidol (Haldol) 10 mg BID PO ; Start 01/31/17 at 21:00; Stop 01/31/17 at 21 :00; Status DC Casper Carbonate (Casper Carbonate) 300 mg BID PO ; Start 01/31/17 at 21:00; Stop 01/31/17 at 21:00; Status DC Lurasidone HCl (Latuda) 80 mg DAILY PO ; Start 02/01/17 at 09:00; Stop 02/01/17 at 09:00; Status DC Pantoprazole Sodium (Protonix) 20 mg DAILY PO ; Start 02/01/17 at 09:00; Stop 02/01/17 at 09:00; Status DC Potassium Chloride (KCl) 10 meq BID PO ; Start 01/31/17 at 21:00; Stop 01/31/17 at 21:00; Status DC Pramipexole Dihydrochloride (Mirapex) 0.25 mg HS PO ; Start 01/31/17 at 21:00; Stop 01/31/17 at 21:00; Status DC Trazodone HCl (Desyrel) 400 mg HS PO Last administered on 02/01/17 20:06; Start 01/31/17 at 21:00 Non-Formulary Medication 80 mg DAILY PO ; Start 02/01/17 at 09:00; Stop at 09:00; Status DC Haloperidol (Haldol) 10 mg DAILY@0900,2100 PO Last administered on 02/02/17 08:30; Start 02/01/17 at 21:00 Casper Carbonate (Eskalith Sr) 450 mg BID PO Last administered on 02/02/17 08:28; Start 02/01/17 at 21:00 Haloperidol (Haldol) 5 mg DAILY@1400 PO Last administered on 02/02/17 13:45; Start 02/01/17 at 14:00 Family History PSYCHIATRIC DISORDERS Social History TOBACCO ABUSE DENIES ALCOHOL OR ILLICITS Physical Exam Vital Signs Vital Signs Date Time Temp Pulse Resp B/P (MAP) Pulse Ox O2 Delivery O2 Flow Rate FiO2 02/02/17 05:55 97.7 77 18 108/69 (82) 93 02/02/17 03:15 98.5 94 18 109/60 (76) 94 02/01/17 16:54 97.7 77 17 131/86 (101) 99 Physical Exam GENERAL: This is a well-nourished, well-developed patient, in no apparent distress. SKIN: No rashes, ecchymoses or lesions. Cool and dry. LEFT WRIST WITH DEEP LACERATION 5 TO 6 CM IN LENGTH BUT NO MAJOR VESSELS OR TENDONS OR NERVES LACERATED HEAD: Atraumatic. Normocephalic. No temporal or scalp tenderness. EYES: Pupils equal round and reactive. Extraocular motions intact. No scleral icterus. No injection or drainage. ENT: Nose without bleeding, purulent drainage or septal hematoma. Throat without erythema, tonsillar hypertrophy or exudate. Uvula midline. Airway patent. NECK: Trachea midline. No JVD or lymphadenopathy. Supple, nontender, no meningeal signs. CARDIOVASCULAR: Regular rate and rhythm without murmurs, gallops, or rubs. S1, S2 NO S3 OR S4 RESPIRATORY: Clear to auscultation. Breath sounds equal bilaterally. No wheezes , rales, or rhonchi. GASTROINTESTINAL: Abdomen soft, non-tender, nondistended. No hepato-splenomegaly , or palpable masses. No guarding. MUSCULOSKELETAL: Extremities without clubbing, cyanosis, or edema. No joint tenderness, effusion, or edema noted. No calf tenderness. Negative Homans sign bilaterally. NEUROLOGICAL: Awake and alert. Cranial nerves II through XII intact. Motor and sensory grossly within normal limits. Five out of 5 muscle strength in all muscle groups. Normal speech. INSIGHT AND JUDGEMENT ARE LIMITED MOOD AND BEHAVIOR ARE INAPPROPRIATE Result Diagram: 01/30/17 2245 01/31/17 0716 Assessment and Plan Assessment and Plan SELF IMPOSED LEFT WRIST LACERATION WITH RAZOR BLADE- CONSULT HAND SURGERY TETANUS KEFLEX FOR WOUND FOR 10 DAYS CONSULT HAND FOR SURGICAL REPAIR LACTINEX HYPOTHYROIDISM - TSH FREE T4 PSYCHIATRIC DISORDER PER PSYCHIATRY TOBACCO ABUSE- RECOMMENDED CESSATION- NICODERM GERD PPI CAITLIN CPAP NEEDED Code Status FULL CODE Discussed Condition With PSYCHIATRY AND RN AND PT Sj Garcia DO Feb 02, 2017 14:23
[2017-02-02] MEDS: CEPHALEXIN MONOHYDRATE 500 MG CAP PO SCH ×3 (14:45→23:30)
--- NOTE | 2017-02-02 15:52 | MB ---
cc: ANA PAULA GARCIA M.D. DATE OF CONSULTATION 02/02/2017 The patient is being seen at the request of Dr. Sj Garcia. REASON FOR CONSULTATION Deep laceration to the left hand. HISTORY OF PRESENT ILLNESS The patient is a 46-year-old female with a history of psychosis. She was admitted on 01/31/2017 and apparently some smuggled some razor blades in her underwear. At 3:00 a.m. this morning the patient cut herself on her left wrist. Attending Dr. Garcia felt this was a deep laceration and requested evaluation by a hand surgeon. The patient presently is reporting no deficits or pain in her hand. PAST MEDICAL HISTORY/REVIEW OF SYSTEMS Negative except for psychiatric problems such as anxiety, mood changes, depression, agitation. ALLERGIES No known food or drug allergies. PAST MEDICAL HISTORY Includes hypothyroidism, bipolar, anxiety, depression, schizophrenia, gastroesophageal reflux disease, hypertension, hyperlipidemia. The patient has CAITLIN and noncompliance. PAST SURGICAL HISTORY C-sections and tooth extractions. MEDICATIONS medications are listed on the chart. PHYSICAL EXAMINATION GENERAL: On examination the patient is lying comfortably in bed. HEENT: Her extraocular muscles are intact. Pupils are equal, round, reactive to light. Mouth is clear. NECK: Neck is supple without masses. LUNGS: Clear. HEART: Heart has a regular rate and rhythm. EXTREMITIES: Examination of extremities reveals a 5 cm transverse laceration of the left forearm approximately 4 cm proximal to distal wrist crease. The patient has full flexion and full extension of all fingers. There is absolutely no loss of motion. A two-point discrimination is within normal limits to all of her fingers. There is adequate perfusion. There is no active bleeding and the wound itself is Steri-Stripped closed with an approximately 2-3 mm gap. IMPRESSION The patient has a superficial laceration to the left forearm. PLAN The patient is cleared for repair of the wound. Recommendation is to have the wound sutured. The patient does not need any follow-up as there is no deep structures involved. Essentially, this is a superficial laceration. MD AARON Munoz/ERIN /3:41 PM /3:47 PM
[2017-02-02] MEDS: LACTOBACILLUS ACIDOPHILUS TAB PO SCH (17:16)
[2017-02-02 18:03] VITALS: BP 143/89; PULSE 76; RESP 18; TEMP 98.6; O2SAT 96
[2017-02-02] MEDS: REMOVE OLD NICOTINE PATCH T-DERMAL SCH (21:00)
[2017-02-02] MEDS ORDERED: LIDOCAINE HCL 1% 20 ML VIAL I-DERMAL ONE (21:15)
[2017-02-02] MEDS: traZODone HCL 100 MG TAB PO SCH (21:20)
[2017-02-02] MEDS: PRAMIPEXOLE DIHYDROCHLORIDE 0.25 MG TAB PO SCH (21:20)
[2017-02-02] MEDS: hydrOXYzine HCL 50 MG TAB PO PRN (21:22)
--- NOTE | 2017-02-02 23:51 | HHI.FPPN ---
Addendum to progress note ADDENDUM Reason for addendum: Additonal documentation Additional information Procedure Note: Laceration Repair Residents paged to repair a wide 2 inch, 1-2mm deep horizontal laceration on L wrist. Laceration was caused by patient cutting herself with a hidden razor blade. The wound appeared slightly erythematous, but no drainage or pus observed. The wound was irrigated with 500cc of normal saline solution. The wound was prepped and draped in sterile fashion. Anesthesia was achieved with 7ml of (1% lidocaine). The wound was reapproximated with eight 6-0 Prolene interrupted sutures. The patient tolerated the procedure without complication. Cinthia Galloway Dr., MD R1 Feb 02, 2017 23:51
[2017-02-03 05:54] VITALS: BP 114/67; PULSE 92; RESP 16; TEMP 97.7; O2SAT 96
[2017-02-03] MEDS: CEPHALEXIN MONOHYDRATE 500 MG CAP PO SCH ×3 (06:25→18:15)
[2017-02-03 07:34] LABS: BASOPHIL # 0.1 TH/MM3 (0-0.2); BASOPHIL % 0.6 % (0.0-2.0); EOSINOPHIL # 0.1 TH/MM3 (0-0.4); EOSINOPHIL % 1.4 % (0.0-4.0); HEMATOCRIT 40.6 % (35.0-46.0); HEMO FLAGS DIFF FINAL; LYMPHOCYTE # 1.9 TH/MM3 (1.0-4.8); MEAN CELL VOLUME 88.8 FL (80.0-100.0); MEAN CORPUSCULAR HEMOGLOBIN 29.8 PG (27.0-34.0); MEAN CORPUSCULAR HGB CONC 33.5 % (32.0-36.0); MONO % 6.5 % (0.0-8.0); NEUT % 69.5 % (16.0-70.0); PLATELET COUNT 182 TH/MM3 (150-450); RED BLOOD COUNT 4.57 MIL/MM3 (4.00-5.30); RED CELL DISTRIBUTION WIDTH 15.8 % (11.6-17.2); WHITE BLOOD COUNT 8.6 TH/MM3 (4.0-11.0)
[2017-02-03 07:57] LABS: ANION GAP 7 MEQ/L (5-15); AST (GOT) 38 U/L (15-37); BICARBONATE 29.4 MEQ/L (21.0-32.0); BLOOD UREA NITROGEN 13 MG/DL (7-18); CHLORIDE 103 MEQ/L (98-107); GLOMERULAR FILTRATION RATE 66 ML/MIN (>89); POTASSIUM 3.6 MEQ/L (3.5-5.1); SODIUM (NA) 139 MEQ/L (136-145)
[2017-02-03 08:08] LABS: ALKALINE PHOSPHATASE 126 U/L (45-117); ALT (GPT) 21 U/L (10-53); FREE T4 0.94 NG/DL (0.76-1.46); TOTAL BILIRUBIN ADULT 0.3 MG/DL (0.2-1.0)
[2017-02-03] MEDS: HALOPERIDOL 10 MG TAB PO SCH ×2 (09:25→21:03)
[2017-02-03] MEDS: FUROSEMIDE 20 MG TAB PO SCH ×2 (09:25→21:00)
[2017-02-03] MEDS: AMANTADINE HCL 100 MG CAP PO SCH ×2 (09:25→21:05)
[2017-02-03] MEDS: LITHIUM CARBONATE 450 MG CONTROLLED RELEASE TAB PO SCH ×2 (09:25→21:00)
[2017-02-03] MEDS: FLUoxetine HCL 20 MG CAP PO SCH (09:25)
[2017-02-03] MEDS: FOLIC ACID 1 MG TAB PO SCH (09:26)
[2017-02-03] MEDS: PANTOPRAZOLE SOD 20 MG DELAYED RELEASE TAB PO SCH (09:26)
[2017-02-03] MEDS: POTASSIUM CHLORIDE 10 MEQ CONTROLLED RELEASE TAB PO SCH ×2 (09:26→21:00)
[2017-02-03] MEDS: LURASIDONE 80 MG TAB PO SCH (09:27)
[2017-02-03] MEDS: LACTOBACILLUS ACIDOPHILUS TAB PO SCH ×3 (09:27→18:15)
[2017-02-03] MEDS: NICOTINE 21 MG/24 HR PATCH T-DERMAL SCH (09:35)
--- NOTE | 2017-02-03 11:53 | HHI.PYPN ---
Subjective Chief Complaint: increased depression with auditory hallucinations and suicidal ideation int Remarks Patient was seen and case discussed with nursing. She continues to be followed by the medical team. Patient is with close observation with her one-to-one. Patient remains wanted, hyporverbal, with psychomotor retardation. She does not express any suicidal or homicidal ideations thoughts intent or plan. She denies having any impulses to cut. Patient says that her hallucinations have resolved this morning though she could be responding to internal stimuli. Mental Status Examination Appearance: Disheveled Consciousness: Alert Orientation: Person, Place (at least) Motor Activity: Other (no motor abnormalities noted) Speech: Hesitant, Slow Language: Adequate Fund of Knowledge: Adequate Attention and Concentration: Other (fair) Memory: Unremarkable (grossly intact on clinical exam) Mood: Sad Affect: Other (restricted and consistent with stated mood) Thought Process & Associations: Intact Thought Content: Hallucinations Hallucination Type: Auditory (denies today) Delusion Type: None Suicidal Ideation: No Suicidal Plan: No Suicidal Intention: No Homicidal Ideation: No Homicidal Plan: No Homicidal Intention: No Insight: Poor Judgment: Poor Results Labs Test 02/03/17 06:58 White Blood Count 8.6 TH/MM3 Red Blood Count 4.57 MIL/MM3 Hemoglobin 13.6 GM/DL Hematocrit 40.6 % Mean Corpuscular Volume 88.8 FL Mean Corpuscular Hemoglobin 29.8 PG Mean Corpuscular Hemoglobin Concent 33.5 % Red Cell Distribution Width 15.8 % Platelet Count 182 TH/MM3 Mean Platelet Volume 9.2 FL Neutrophils (%) (Auto) 69.5 % Lymphocytes (%) (Auto) 22.0 % Monocytes (%) (Auto) 6.5 % Eosinophils (%) (Auto) 1.4 % Basophils (%) (Auto) 0.6 % Neutrophils # (Auto) 6.0 TH/MM3 Lymphocytes # (Auto) 1.9 TH/MM3 Monocytes # (Auto) 0.6 TH/MM3 Eosinophils # (Auto) 0.1 TH/MM3 Basophils # (Auto) 0.1 TH/MM3 CBC Comment DIFF FINAL Differential Comment Blood Urea Nitrogen 13 MG/DL Creatinine 0.91 MG/DL Random Glucose 83 MG/DL Total Protein 7.1 GM/DL Albumin 3.3 GM/DL Calcium Level 8.8 MG/DL Phosphorus Level 3.2 MG/DL Magnesium Level 2.0 MG/DL Alkaline Phosphatase 126 U/L Aspartate Amino Transf (AST/SGOT) 38 U/L Alanine Aminotransferase (ALT/SGPT) 21 U/L Total Bilirubin 0.3 MG/DL Sodium Level 139 MEQ/L Potassium Level 3.6 MEQ/L Chloride Level 103 MEQ/L Carbon Dioxide Level 29.4 MEQ/L Anion Gap 7 MEQ/L Estimat Glomerular Filtration Rate 66 ML/MIN Free Thyroxine 0.94 NG/DL Thyroid Stimulating Hormone 3rd Gen 7.050 uIU/ML Vitals/IOs Vital Signs Date Time Temp Pulse Resp B/P (MAP) Pulse Ox O2 Delivery O2 Flow Rate FiO2 02/03/17 05:54 97.7 92 16 114/67 (41) 96 Assessment & Plan Problem List: (1) Schizoaffective disorder ICD Codes: F25.9 - Schizoaffective disorder Status: Chronic Assessment & Plan Patient denies hallucinations and suicidal ideation today but is not a reliable historian. Continue one-to-one Justification for Cont. Inpt. Patient will decompensate in a less restrictive setting Problem Qualifiers (1) Schizoaffective disorder: Qualified Codes: F25.0 - Schizoaffective disorder, bipolar type Bryan Turner DO Feb 03, 2017 11:53
[2017-02-03] MEDS: HALOPERIDOL 5 MG TAB PO SCH (13:39)
[2017-02-03] MEDS: ACETAMINOPHEN 325 MG TAB PO PRN (13:41)
[2017-02-03 18:22] VITALS: BP 112/67; PULSE 75; RESP 18; TEMP 98.8; O2SAT 99
[2017-02-03] MEDS: PRAMIPEXOLE DIHYDROCHLORIDE 0.25 MG TAB PO SCH (21:00)
[2017-02-03] MEDS ORDERED: DOCUSATE SODIUM 50 MG/SENNA 8.6 MG TAB PO PRN (21:00)
[2017-02-03] MEDS: REMOVE OLD NICOTINE PATCH T-DERMAL SCH (21:00)
[2017-02-03] MEDS: traZODone HCL 100 MG TAB PO SCH (21:00)
--- NOTE | 2017-02-03 21:06 | HHI.PR ---
Subjective Remarks Patient says she is constipated. Denies any pain in left hand. Discussed with nurse. Wound was dressed around 4 PM. Objective Vital Signs Date Time Temp Pulse Resp B/P (MAP) Pulse Ox O2 Delivery O2 Flow Rate FiO2 02/03/17 18:22 98.8 75 18 112/67 (82) 99 02/03/17 14:45 16 02/03/17 05:54 97.7 92 16 114/67 (83) 96 Result Diagram: 02/03/1765702/03/17657 Objective Remarks GENERAL: patient walking around her room. SKIN: Warm and dry. HEAD: Normocephalic. EYES: No scleral icterus. No injection or drainage. NECK: trachea midline. No JVD. CARDIOVASCULAR: Regular rate and rhythm without murmurs, gallops, or rubs. RESPIRATORY: Breath sounds equal bilaterally. No accessory muscle use. GASTROINTESTINAL: Abdomen soft, non-tender, nondistended. MUSCULOSKELETAL: No cyanosis, or edema. left wrist dressed. BACK: Nontender without obvious deformity. No CVA tenderness. A/P Assessment and Plan /Left hand self-inflicted laceration. Continue antibiotics. Continue dressing changes. No reported redness. Due to time course of injury, allowed to heal by secondary intention. Continue to monitor. //Constipation. Laxatives ordered. Amrit Linton MD Feb 03, 2017 21:06
[2017-02-04] MEDS: CEPHALEXIN MONOHYDRATE 500 MG CAP PO SCH ×5 (00:11→23:19)
[2017-02-04 06:30] VITALS: BP 123/72; PULSE 72; RESP 16; TEMP 97.2; O2SAT 91
[2017-02-04] MEDS: POTASSIUM CHLORIDE 10 MEQ CONTROLLED RELEASE TAB PO SCH ×2 (09:43→22:08)
[2017-02-04] MEDS: LACTOBACILLUS ACIDOPHILUS TAB PO SCH ×3 (09:44→18:13)
[2017-02-04] MEDS: AMANTADINE HCL 100 MG CAP PO SCH ×2 (09:44→22:07)
[2017-02-04] MEDS: LURASIDONE 80 MG TAB PO SCH (09:44)
[2017-02-04] MEDS: FUROSEMIDE 20 MG TAB PO SCH ×2 (09:44→22:07)
[2017-02-04] MEDS: PANTOPRAZOLE SOD 20 MG DELAYED RELEASE TAB PO SCH (09:44)
[2017-02-04] MEDS: FOLIC ACID 1 MG TAB PO SCH (09:44)
[2017-02-04] MEDS: FLUoxetine HCL 20 MG CAP PO SCH (09:44)
[2017-02-04] MEDS: LITHIUM CARBONATE 450 MG CONTROLLED RELEASE TAB PO SCH ×2 (09:45→22:07)
[2017-02-04] MEDS: NICOTINE 21 MG/24 HR PATCH T-DERMAL SCH (09:54)
[2017-02-04 10:33] LABS: HEMOGLOBIN A1a 1.1 %; HEMOGLOBIN A1b 0.8 %; HEMOGLOBIN Ao 85.8 %; HEMOGLOBIN F 0.8 %; HEMOGLOBIN P3 3.5 %
[2017-02-04] MEDS: HALOPERIDOL 10 MG TAB PO SCH ×2 (11:03→22:10)
--- NOTE | 2017-02-04 12:57 | HHI.PYPN ---
Subjective Chief Complaint: increased depression with auditory hallucinations and suicidal ideation int Remarks Patient was seen and case discussed with nursing. Patient remains on her one-to -one. She remains blunted and hypoverbal. Patient says the intensity of her hallucinations have improved. They continue to tell her to kill herself. Denies any intent of doing so or thoughts of cutting. Behaving well on the unit Mental Status Examination Appearance: Disheveled Consciousness: Alert Orientation: Person, Place (at least) Motor Activity: Other (no motor abnormalities noted) Speech: Hesitant, Slow Language: Adequate Fund of Knowledge: Adequate Attention and Concentration: Other (fair) Memory: Unremarkable (grossly intact on clinical exam) Mood: Sad Affect: Other (restricted and consistent with stated mood) Thought Process & Associations: Intact Thought Content: Hallucinations Hallucination Type: Auditory (to hurt herself), Command Delusion Type: None Suicidal Ideation: No Suicidal Plan: No Suicidal Intention: No Homicidal Ideation: No Homicidal Plan: No Homicidal Intention: No Insight: Poor Judgment: Poor Results Vitals/IOs Vital Signs Date Time Temp Pulse Resp B/P (MAP) Pulse Ox O2 Delivery O2 Flow Rate FiO2 02/04/17 06:30 97.2 72 16 123/72 (89) 91 Assessment & Plan Problem List: (1) Schizoaffective disorder ICD Codes: F25.9 - Schizoaffective disorder Status: Chronic Assessment & Plan Continue current treatment plan Justification for Cont. Inpt. Patient will decompensate in a less restrictive setting Problem Qualifiers (1) Schizoaffective disorder: Qualified Codes: F25.0 - Schizoaffective disorder, bipolar type Bryan Turner DO Feb 04, 2017 12:57
[2017-02-04] MEDS: HALOPERIDOL 5 MG TAB PO SCH (13:47)
--- NOTE | 2017-02-04 20:46 | HHI.PR ---
Subjective Remarks Patient says she is feeling well. Denies any pain in left wrist. Objective Vital Signs Date Time Temp Pulse Resp B/P (MAP) Pulse Ox O2 Delivery O2 Flow Rate FiO2 02/04/17 06:30 97.2 72 16 123/72 (89) 91 I/O 02/03/17 02/03/17 02/03/17 02/04/17 02/04/17 02/04/17 07:00 15:00 23:00 07:00 15:00 23:00 Intake Total 240 ml Balance 240 ml Intake Oral 240 ml Result Diagram: 02/03/1765702/03/17657 Objective Remarks GENERAL: patient walking around. examination chair. SKIN: Warm and dry. HEAD: Normocephalic. EYES: No scleral icterus. No injection or drainage. NECK: trachea midline. No JVD. CARDIOVASCULAR: Regular rate and rhythm without murmurs, gallops, or rubs. RESPIRATORY: Breath sounds equal bilaterally. No accessory muscle use. GASTROINTESTINAL: Abdomen soft, non-tender, nondistended. MUSCULOSKELETAL: No cyanosis, or edema. left wristwith 3-4 cm laceration across the anterior left wrist. Steri-Strips in place. No surrounding erythema. Small amount of fibrinous exudate. BACK: Nontender without obvious deformity. No CVA tenderness. A/P Assessment and Plan /Left hand self-inflicted laceration. Continue antibiotics. Continue dressing changes. signs of infection on exam. Due to time course of injury, allowed to heal by secondary intention.dry dressing to cover instead of plastic nonstick dressing. Saline if needed to remove.discussed with nursing.Continue to monitor. //Constipation. Laxatives ordered.continue to monitor Amrit Linton MD Feb 04, 2017 20:45
[2017-02-04] MEDS: REMOVE OLD NICOTINE PATCH T-DERMAL SCH (21:00)
[2017-02-04 21:58] VITALS: BP 107/79; PULSE 75; RESP 18; TEMP 98
[2017-02-04] MEDS: PRAMIPEXOLE DIHYDROCHLORIDE 0.25 MG TAB PO SCH (22:07)
[2017-02-04] MEDS: traZODone HCL 100 MG TAB PO SCH (22:07)
[2017-02-05] MEDS: CEPHALEXIN MONOHYDRATE 500 MG CAP PO SCH ×4 (06:17→23:35)
[2017-02-05 06:22] VITALS: BP 109/58; PULSE 65; RESP 16; TEMP 98.6; O2SAT 92
[2017-02-05] MEDS: LURASIDONE 80 MG TAB PO SCH (08:45)
[2017-02-05] MEDS: FLUoxetine HCL 20 MG CAP PO SCH (08:45)
[2017-02-05] MEDS: LACTOBACILLUS ACIDOPHILUS TAB PO SCH ×3 (08:45→17:33)
[2017-02-05] MEDS: LITHIUM CARBONATE 450 MG CONTROLLED RELEASE TAB PO SCH ×2 (08:46→21:47)
[2017-02-05] MEDS: POTASSIUM CHLORIDE 10 MEQ CONTROLLED RELEASE TAB PO SCH ×2 (08:46→21:46)
[2017-02-05] MEDS: PANTOPRAZOLE SOD 20 MG DELAYED RELEASE TAB PO SCH (08:46)
[2017-02-05] MEDS: AMANTADINE HCL 100 MG CAP PO SCH ×2 (08:46→21:46)
[2017-02-05] MEDS: FUROSEMIDE 20 MG TAB PO SCH ×2 (08:46→21:47)
[2017-02-05] MEDS: FOLIC ACID 1 MG TAB PO SCH (08:46)
[2017-02-05] MEDS: NICOTINE 21 MG/24 HR PATCH T-DERMAL SCH (08:47)
[2017-02-05] MEDS: HALOPERIDOL 10 MG TAB PO SCH ×2 (08:50→17:16)
[2017-02-05] MEDS: ACETAMINOPHEN 325 MG TAB PO PRN ×2 (09:26→21:53)
--- NOTE | 2017-02-05 12:42 | PD.TTN ---
Patient Problems 1. Discharge planning 2. Medication compliance 3. Knowledge deficit 4. Lack of coping skills Progress Toward Goals Provider Present: Dr. Violeta Sampson Provider Input: Patient has had an increase in Haldol medication. Patient is endorsing decreased voices. Patient is on 1:1 due to self injurious behavior. Nurse(s) Input: Patient is observed to not have any behavioral problems on the unit. Patient has been compliant with medications Psychiatric Counselors Present: ALEXANDRIA Singh Psych Therapist Input: Patient is cooperative and calm and is oriented x4. Patient endorses feelings of depression and low energy. Patient states that she is not experiencing any side effects from medications, but does seem more tired. Group Spec/RT/OT/ZAVALA Present: Esvin Martins OT Group Spec/RT/OT/ZAVALA Input: Patient is selective with groups. Anjali AcostaTavo Feb 05, 2017 12:42
--- NOTE | 2017-02-05 13:36 | HHI.PYPN ---
Subjective Chief Complaint: increased depression with auditory hallucinations and suicidal ideation int Remarks Patient seen in her room with nurse Carl, counselor Adrián, and medical student Noé. Chart reviewed. Patient compliant medication. Patient continues sad with marked decreased range intense never affect. The auditory hallucinations continue, patient states not quite as intense. Continue to ask patient about the motivation for her smuggling in 2 razor blades in her underwear. She is unable to give any reason for it. Will increase Haldol to 10 mg 3 times a day continue other medications. Finger level drawn this a.m. 1.1 will repeat tomorrow Review of Systems Except as stated in HPI: all other systems reviewed are Neg Mental Status Examination Appearance: Disheveled Consciousness: Alert Orientation: Person, Place (at least) Motor Activity: Other (no motor abnormalities noted) Speech: Hesitant, Slow Language: Adequate Fund of Knowledge: Adequate Attention and Concentration: Other (fair) Memory: Unremarkable (grossly intact on clinical exam) Mood: Sad Affect: Other (restricted and consistent with stated mood) Thought Process & Associations: Intact Thought Content: Hallucinations Hallucination Type: Auditory (to hurt herself), Command Delusion Type: None Suicidal Ideation: No Suicidal Plan: No Suicidal Intention: No Homicidal Ideation: No Homicidal Plan: No Homicidal Intention: No Insight: Poor Judgment: Poor Results Labs Test 02/05/17 08:00 Finger Level 1.1 MEQ/L Vitals/IOs Vital Signs Date Time Temp Pulse Resp B/P (MAP) Pulse Ox O2 Delivery O2 Flow Rate FiO2 02/05/17 06:22 98.6 65 16 109/58 (75) 92 Assessment & Plan Problem List: (1) Schizoaffective disorder ICD Codes: F25.9 - Schizoaffective disorder Status: Chronic Assessment & Plan Estimated LOS: days patient continues depressed vaguely suicidal with continued auditory hallucinations he medication adjustment above. Will recheck lithium level in a.m. Justification for Cont. Inpt. This time patient will decompensate if placed in the lower level of care Discharge Planning She plans to return home with her sister when she is stabilized Problem Qualifiers (1) Schizoaffective disorder: Qualified Codes: F25.0 - Schizoaffective disorder, bipolar type Jameel Sampson MD Feb 05, 2017 13:36
[2017-02-05] MEDS: hydrOXYzine HCL 50 MG TAB PO PRN (15:12)
--- NOTE | 2017-02-05 19:07 | HHI.PR ---
Subjective Remarks Patient says she is feeling well. Denies any pain in left wrist. She reports that constipation has resolved. Objective Vital Signs Date Time Temp Pulse Resp B/P (MAP) Pulse Ox O2 Delivery O2 Flow Rate FiO2 02/05/17 06:22 98.6 65 16 109/58 (75) 92 02/04/17 21:58 98.0 75 18 107/79 (88) I/O 02/04/17 02/04/17 02/04/17 02/05/17 02/05/17 02/05/17 07:00 15:00 23:00 07:00 15:00 23:00 Intake Total 240 ml Balance 240 ml Intake Oral 240 ml Result Diagram: 02/03/1765702/03/17657 Objective Remarks GENERAL: patient walking around. examination chair. SKIN: Warm and dry. HEAD: Normocephalic. EYES: No scleral icterus. No injection or drainage. NECK: trachea midline. No JVD. CARDIOVASCULAR: Regular rate and rhythm without murmurs, gallops, or rubs. RESPIRATORY: Breath sounds equal bilaterally. No accessory muscle use. GASTROINTESTINAL: Abdomen soft, non-tender, nondistended. MUSCULOSKELETAL: No cyanosis, or edema. left wristwith 3-4 cm laceration across the anterior left wrist. Steri-Strips in place. No surrounding erythema. bandage removed with saline, and rewrapped with dry gauze. BACK: Nontender without obvious deformity. No CVA tenderness. A/P Assessment and Plan /Left hand self-inflicted laceration. Continue antibiotics. Continue dressing changes. signs of infection on exam. Due to time course of injury, allowed to heal by secondary intention.dry dressing to cover instead of plastic nonstick dressing. Saline if needed to remove.discussed with nursing.Continue to monitor. =02/05. Bandage changed using saline for removal. no signs of infection.Dry gauze only. Instructed nursing. Change daily. Continue antibiotics. //Constipation. resolved after laxitives..continue to monitor Amrit Linton MD Feb 05, 2017 19:07
[2017-02-05] MEDS: REMOVE OLD NICOTINE PATCH T-DERMAL SCH (21:00)
[2017-02-05] MEDS: PRAMIPEXOLE DIHYDROCHLORIDE 0.25 MG TAB PO SCH (21:46)
[2017-02-05] MEDS: traZODone HCL 100 MG TAB PO SCH (21:47)
[2017-02-05] MEDS: diphenhydrAMINE HCL 50 MG CAP - HS PRN PO (23:35)
[2017-02-06 06:12] VITALS: BP 121/56; PULSE 69; RESP 16; TEMP 98.3; O2SAT 96
[2017-02-06] MEDS: CEPHALEXIN MONOHYDRATE 500 MG CAP PO SCH ×4 (06:30→23:19)
[2017-02-06] MEDS: FUROSEMIDE 20 MG TAB PO SCH ×2 (09:00→21:51)
[2017-02-06] MEDS: LACTOBACILLUS ACIDOPHILUS TAB PO SCH ×3 (10:31→17:21)
[2017-02-06] MEDS: LURASIDONE 80 MG TAB PO SCH (10:32)
[2017-02-06] MEDS: AMANTADINE HCL 100 MG CAP PO SCH ×2 (10:32→21:51)
[2017-02-06] MEDS: HALOPERIDOL 10 MG TAB PO SCH ×3 (10:32→17:21)
[2017-02-06] MEDS: LITHIUM CARBONATE 450 MG CONTROLLED RELEASE TAB PO SCH ×2 (10:33→21:50)
[2017-02-06] MEDS: PANTOPRAZOLE SOD 20 MG DELAYED RELEASE TAB PO SCH (10:33)
[2017-02-06] MEDS: POTASSIUM CHLORIDE 10 MEQ CONTROLLED RELEASE TAB PO SCH ×2 (10:33→21:49)
[2017-02-06] MEDS: FOLIC ACID 1 MG TAB PO SCH (10:33)
[2017-02-06] MEDS: NICOTINE 21 MG/24 HR PATCH T-DERMAL SCH (10:34)
[2017-02-06] MEDS: FLUoxetine HCL 20 MG CAP PO SCH (10:34)
--- NOTE | 2017-02-06 13:02 | HHI.PYPN ---
Subjective Chief Complaint: increased depression with auditory hallucinations and suicidal ideation int Remarks Patient seen in [place] with medical student kalani, chart reviewed, patient compliant medications. [place] level drawn today is 1.1 which is the same as that drawn yesterday. We'll continue lithium dose no change. Patient calmer today more focused denies suicidality. States the voices are diminishing. She is able contracted to no harm she acknowledges she has no other in the left with rangers of any kind. This time I will discontinue the one-to-one observation and return patient to close obsessed with off unit privileges Review of Systems Except as stated in HPI: all other systems reviewed are Neg Mental Status Examination Appearance: Disheveled Consciousness: Alert Orientation: Person, Place (at least) Motor Activity: Other (no motor abnormalities noted) Speech: Hesitant, Slow Language: Adequate Fund of Knowledge: Adequate Attention and Concentration: Other (fair) Memory: Unremarkable (grossly intact on clinical exam) Mood: Sad Affect: Other (restricted and consistent with stated mood) Thought Process & Associations: Intact Thought Content: Hallucinations Hallucination Type: Auditory (to hurt herself), Command Delusion Type: None Suicidal Ideation: No Suicidal Plan: No Suicidal Intention: No Homicidal Ideation: No Homicidal Plan: No Homicidal Intention: No Insight: Poor Judgment: Poor Results Labs Test 02/06/17 06:14 [place] Level 1.1 MEQ/L Vitals/IOs Vital Signs Date Time Temp Pulse Resp B/P (MAP) Pulse Ox O2 Delivery O2 Flow Rate FiO2 02/06/17 06:12 98.3 69 16 121/56 (77) 96 Intake and Output 02/06/17 02/06/17 02/07/17 08:00 16:00 00:00 Intake Total 240 ml Balance 240 ml Assessment & Plan Problem List: (1) Schizoaffective disorder ICD Codes: F25.9 - Schizoaffective disorder Status: Chronic Assessment & Plan Estimated LOS: days patient somewhat calmer and focused today states voices are diminishing, denies suicidality. [place] level drawn today is 1.1 which is the same as that drawn yesterday. We'll discontinue one-to-one observation and start close optional off unit privileges Justification for Cont. Inpt. At this time patient will decompensate and placed a lower level of care Discharge Planning The patient continues to improve consider discharge by the end of the week Problem Qualifiers (1) Schizoaffective disorder: Qualified Codes: F25.0 - Schizoaffective disorder, bipolar type Jameel Sampson MD Feb 06, 2017 13:02
--- NOTE | 2017-02-06 14:37 | HHI.PR ---
Subjective Remarks NO NEW COMPLAINTS AT THIS TIME WOUND ON LEFT WRIST DRESSED NEEDS TO HEAL BY SECONDARY INTENTION Objective Vitals Vital Signs Date Time Temp Pulse Resp B/P (MAP) Pulse Ox O2 Delivery O2 Flow Rate FiO2 02/06/17 06:12 98.3 69 16 121/56 (77) 96 I/O 02/05/17 02/05/17 02/05/17 02/06/17 02/06/17 02/06/17 07:00 15:00 23:00 07:00 15:00 23:00 Intake Total 240 ml Balance 240 ml Intake Oral 240 ml Result Diagram: 02/03/1758 02/03/17657 Other Results Laboratory Tests Test 02/05/17 08:00 02/06/17 06:14 [place] Level 1.1 MEQ/L 1.1 MEQ/L Objective Remarks GENERAL: AWAKE AND ALERT TALKATIVE AND COOPERATIVE SKIN: Warm and dry. HEAD: Atraumatic. Normocephalic. EYES: Pupils equal and round. No scleral icterus. No injection or drainage. EOMI ENT: No nasal bleeding or discharge. Mucous membranes pink and moist.TONGUE MIDLINE NECK: Trachea midline. No JVD. SUPPLE CARDIOVASCULAR: Regular rate and rhythm. S1, S2 NO S3 OR S4 RESPIRATORY: No accessory muscle use. Clear to auscultation. Breath sounds equal bilaterally. GASTROINTESTINAL: Abdomen soft, non-tender, nondistended. Hepatic and splenic margins not palpable. MUSCULOSKELETAL: Extremities without clubbing, cyanosis, or edema. No obvious deformities. NEUROLOGICAL: Awake and alert. No obvious cranial nerve deficits. Motor grossly within normal limits. Five out of 5 muscle strength in the arms and legs. Normal speech. PSYCHIATRIC: INAppropriate mood and affect; insight and judgment ABnormal. Medications and IVs Current Medications Lorazepam (Ativan) 1 mg Q6H PRN PO MODERATE TO SEVERE ANXIETY Last administered on 02/02/17 14:06; Start 01/31/17 at 02:00 Lorazepam (Ativan Inj) 1 mg Q6H PRN IM MODERATE TO SEVERE ANXIETY; Start at 02:00 Diphenhydramine HCl (Benadryl) 50 mg Q6H PRN PO MILD ANXIETY, EPS Last administered on 02/02/17 14:07; Start 01/31/17 at 02:00 Diphenhydramine HCl (Benadryl Inj) 50 mg Q6H PRN IM MILD ANXIETY, EPS; Start 01/31/17 at 02:00 Diphenhydramine HCl (Benadryl) 50 mg HS PRN PO INSOMNIA Last administered on 23:35; Start 01/31/17 at 02:00 Diphenhydramine HCl (Benadryl Inj) 50 mg HS PRN IM INSOMNIA; Start 01/31/17 at 02:00 Trazodone HCl (Desyrel) 50 mg HS PRN PO INSOMNIA; Start 01/31/17 at 02:00; Stop 01/31/17 at 15:02; Status DC Acetaminophen (Tylenol) 650 mg Q4H PRN PO Pain 1-5 or Temp >101F; Start at 02:00; Stop 01/31/17 at 13:59; Status DC Magnesium Hydroxide (Milk Of Magnesia Liq) 30 ml DAILY PRN PO CONSTIPATION; Start 01/31/17 at 02:00; Stop 01/31/17 at 14:08; Status DC Al Hydrox/Mg Hydrox/Simethicone (Mag-Al Plus Susp Liq) 30 ml Q6H PRN PO DYSPEPSIA; Start 01/31/17 at 02:00; Stop 01/31/17 at 13:59; Status DC Nicotine (Habitrol 21 Mg Patch.24 Hr) 1 patch DAILY T-DERMAL Last administered on 02/06/17 10:34; Start 01/31/17 at 09:00 Miscellaneous Information 1 HS T-DERMAL Last administered on 02/05/17 21:00; Start 01/31/17 at 21:00 Fluoxetine HCl (PROzac) 80 mg DAILY PO Last administered on 02/06/17 10:34; Start 01/31/17 at 09:00 Lurasidone HCl (Latuda) 80 mg DAILY PO Last administered on 02/06/17 10:32; Start 01/31/17 at 09:00 Haloperidol (Haldol) 10 mg BID PO Last administered on 02/01/17 08:35; Start 01/31/17 at 09:00; Stop 02/01/17 at 10:48; Status DC Amantadine HCl (Symmetrel) 100 mg BID PO Last administered on 02/06/17 10:32 ; Start 01/31/17 at 09:00 Pramipexole Dihydrochloride (Mirapex) 0.25 mg HS PO Last administered on 21:46; Start 01/31/17 at 21:00 Pantoprazole Sodium (Protonix) 20 mg DAILY PO Last administered on 02/06/17 10:33; Start 01/31/17 at 09:00 Folic Acid (Folate) 1 mg DAILY PO Last administered on 01/31/17 09:53; Start 01/31/17 at 09:00; Stop 01/31/17 at 14:00; Status DC Furosemide (Lasix) 20 mg BID PO Last administered on 01/31/17 09:53; Start at 09:00; Stop 01/31/17 at 14:08; Status DC Potassium Chloride (KCl) 10 meq BID PO Last administered on 02/06/17 10:33; Start 01/31/17 at 09:00 [place] Carbonate ([place] Carbonate) 300 mg BID PO Last administered on 08:36; Start 01/31/17 at 09:00; Stop 02/01/17 at 10:48; Status DC Diphenhydramine HCl (Benadryl) 50 mg HS PRN PO INSOMNIA; Start 01/31/17 at 12: 45; Stop 01/31/17 at 14:10; Status DC Acetaminophen (Tylenol) 650 mg Q4H PRN PO Pain 1-5 or Temp >101F Last administered on 02/05/17 21:53; Start 01/31/17 at 12:45 Magnesium Hydroxide (Milk Of Magnesia Liq) 30 ml DAILY PRN PO CONSTIPATION; Start 01/31/17 at 12:45 Al Hydrox/Mg Hydrox/Simethicone (Mag-Al Plus Susp Liq) 30 ml Q6H PRN PO DYSPEPSIA Last administered on 02/05/17 09:26; Start 01/31/17 at 12:45 Hydroxyzine HCl (Atarax) 50 mg Q6H PRN PO ANXIETY Last administered on 15:12; Start 01/31/17 at 12:45 Amantadine HCl (Symmetrel) 100 mg BID PO ; Start 01/31/17 at 21:00; Stop at 21:00; Status DC Folic Acid (Folate) 1 mg DAILY PO Last administered on 02/06/17 10:33; Start 02/01/17 at 09:00 Furosemide (Lasix) 20 mg BID PO Last administered on 02/06/17 09:00; Start 01/31/17 at 21:00 Haloperidol (Haldol) 10 mg BID PO ; Start 01/31/17 at 21:00; Stop 01/31/17 at 21 :00; Status DC [place] Carbonate ([place] Carbonate) 300 mg BID PO ; Start 01/31/17 at 21:00; Stop 01/31/17 at 21:00; Status DC Lurasidone HCl (Latuda) 80 mg DAILY PO ; Start 02/01/17 at 09:00; Stop 02/01/17 at 09:00; Status DC Pantoprazole Sodium (Protonix) 20 mg DAILY PO ; Start 02/01/17 at 09:00; Stop 02/01/17 at 09:00; Status DC Potassium Chloride (KCl) 10 meq BID PO ; Start 01/31/17 at 21:00; Stop 01/31/17 at 21:00; Status DC Pramipexole Dihydrochloride (Mirapex) 0.25 mg HS PO ; Start 01/31/17 at 21:00; Stop 01/31/17 at 21:00; Status DC Trazodone HCl (Desyrel) 400 mg HS PO Last administered on 02/05/17 21:47; Start 01/31/17 at 21:00 Non-Formulary Medication 80 mg DAILY PO ; Start 02/01/17 at 09:00; Stop at 09:00; Status DC Haloperidol (Haldol) 10 mg DAILY@0900,2100 PO Last administered on 02/05/17 08:50; Start 02/01/17 at 21:00; Stop 02/05/17 at 13:33; Status DC [place] Carbonate (Eskalith Sr) 450 mg BID PO Last administered on 02/06/17 10:33; Start 02/01/17 at 21:00 Haloperidol (Haldol) 5 mg DAILY@1400 PO Last administered on 02/04/17 13:47; Start 02/01/17 at 14:00; Stop 02/05/17 at 13:33; Status DC Diphtheria/ Tetanus/Acell Pertussis (Boostrix Inj) 0.5 ml ONCE ONCE IM Last administered on 02/02/17 15:11; Start 02/02/17 at 14:15; Stop 02/02/17 at 14 :29; Status DC Cephalexin Monohydrate (Keflex) 500 mg Q6HR PO Last administered on 02/06/17 12:07; Start 02/02/17 at 14:15 Lactobacillus Acidophilus (Lactinex) 1 tab TID PO Last administered on 12:06; Start 02/02/17 at 18:00 Lidocaine HCl (Xylocaine 1% Inj) 10 ml NOW ONCE I-DERMAL Last administered on 02/02/17 21:15; Start 02/02/17 at 21:15; Stop 02/02/17 at 21:16; Status DC Senna/Docusate Sodium (Jia-Colace) 1 tab DAILY PRN PO CONSTIPATION; Start 02/09 at 21:00 Haloperidol (Haldol) 10 mg TID PO Last administered on 02/06/17 12:07; Start 02/05/17 at 18:00 A/P Assessment and Plan /Left hand self-inflicted laceration. Continue antibiotics. Continue dressing changes. signs of infection on exam. Due to time course of injury, allowed to heal by secondary intention.dry dressing to cover instead of plastic nonstick dressing. Saline if needed to remove.discussed with nursing.Continue to monitor. DW HAND SURGERY WILL CLOSE BY SECONDARY INTENTION //Constipation. Laxatives ordered.continue to monitor WILL FOLLOW Discharge Planning PER PSYCHIATRY Sj Garcia DO Feb 06, 2017 14:37
[2017-02-06] MEDS: hydrOXYzine HCL 50 MG TAB PO PRN (17:21)
[2017-02-06 18:00] VITALS: BP 100/67; PULSE 73; RESP 16; TEMP 97.9; O2SAT 96
[2017-02-06] MEDS: REMOVE OLD NICOTINE PATCH T-DERMAL SCH (21:00)
[2017-02-06] MEDS: diphenhydrAMINE HCL 50 MG CAP - HS PRN PO (21:49)
[2017-02-06] MEDS: traZODone HCL 100 MG TAB PO SCH (21:50)
[2017-02-06] MEDS: PRAMIPEXOLE DIHYDROCHLORIDE 0.25 MG TAB PO SCH (21:51)
[2017-02-06] MEDS: ACETAMINOPHEN 325 MG TAB PO PRN (21:53)
[2017-02-07 05:54] VITALS: BP 128/63; PULSE 65; RESP 17; TEMP 98.2; O2SAT 94
[2017-02-07] MEDS: CEPHALEXIN MONOHYDRATE 500 MG CAP PO SCH ×3 (06:10→17:27)
[2017-02-07] MEDS: LACTOBACILLUS ACIDOPHILUS TAB PO SCH ×3 (08:43→17:27)
[2017-02-07] MEDS: FUROSEMIDE 20 MG TAB PO SCH ×2 (08:44→20:30)
[2017-02-07] MEDS: NICOTINE 21 MG/24 HR PATCH T-DERMAL SCH (08:44)
[2017-02-07] MEDS: AMANTADINE HCL 100 MG CAP PO SCH ×2 (08:44→20:30)
[2017-02-07] MEDS: LURASIDONE 80 MG TAB PO SCH (08:44)
[2017-02-07] MEDS: POTASSIUM CHLORIDE 10 MEQ CONTROLLED RELEASE TAB PO SCH ×2 (08:44→20:30)
[2017-02-07] MEDS: HALOPERIDOL 10 MG TAB PO SCH ×3 (08:44→17:27)
[2017-02-07] MEDS: LITHIUM CARBONATE 450 MG CONTROLLED RELEASE TAB PO SCH ×2 (08:45→20:29)
[2017-02-07] MEDS: FOLIC ACID 1 MG TAB PO SCH (08:45)
[2017-02-07] MEDS: FLUoxetine HCL 20 MG CAP PO SCH (08:45)
[2017-02-07] MEDS: PANTOPRAZOLE SOD 20 MG DELAYED RELEASE TAB PO SCH (08:45)
[2017-02-07] MEDS: ACETAMINOPHEN 325 MG TAB PO PRN (08:54)
--- NOTE | 2017-02-07 12:52 | HHI.PYPN ---
Subjective Chief Complaint: increased depression with auditory hallucinations and suicidal ideation int Remarks Patient seen in dayroom of floor staff, chart reviewed, patient compliant medication. Patient states voices continue to diminish, today they are "not as intense", also states the suicidality is "a little" however her affect has improved eye contact has improved her posture has improved. She is more reactive. She is compliant medications. At this time patient does not meet [place] act criteria will lift [place] act allow patient to sign voluntary. Consider discharge within 24-48 hours if she continues to improve Review of Systems Except as stated in HPI: all other systems reviewed are Neg Mental Status Examination Appearance: Disheveled Consciousness: Alert Orientation: Person, Place (at least) Motor Activity: Other (no motor abnormalities noted) Speech: Hesitant, Slow Language: Adequate Fund of Knowledge: Adequate Attention and Concentration: Other (fair) Memory: Unremarkable (grossly intact on clinical exam) Mood: Sad Affect: Other (restricted and consistent with stated mood) Thought Process & Associations: Intact Thought Content: Hallucinations Hallucination Type: Auditory (to hurt herself), Command Delusion Type: None Suicidal Ideation: No Suicidal Plan: No Suicidal Intention: No Homicidal Ideation: No Homicidal Plan: No Homicidal Intention: No Insight: Poor Judgment: Poor Results Vitals/IOs Vital Signs Date Time Temp Pulse Resp B/P (MAP) Pulse Ox O2 Delivery O2 Flow Rate FiO2 02/07/17 05:54 98.2 65 17 128/63 (84) 94 Intake and Output 02/07/17 02/07/17 02/08/17 08:00 16:00 00:00 Intake Total 720 ml Balance 720 ml Assessment & Plan Problem List: (1) Schizoaffective disorder ICD Codes: F25.9 - Schizoaffective disorder Status: Chronic Assessment & Plan Estimated LOS: days patient is depression and psychosis her slowly lifting. Will lift Wayne act allow patient to sign voluntary. Consider discharge on 24- 48 hours Justification for Cont. Inpt. At this time patient decompensate from a place an appropriate level of care Discharge Planning Pelvic discharged back to the community Problem Qualifiers (1) Schizoaffective disorder: Qualified Codes: F25.0 - Schizoaffective disorder, bipolar type Jameel Sampson MD Feb 07, 2017 12:52
--- NOTE | 2017-02-07 15:10 | HHI.PR ---
Subjective Remarks NO NEW COMPLAINTS AT THIS TIME WOUND ON LEFT WRIST DRESSED NEEDS TO HEAL BY SECONDARY INTENTION 02-07 SEEN WATCHING A MOVIE NO CURRENT COMPLAINTS WOUND DRESSED Objective Vitals Vital Signs Date Time Temp Pulse Resp B/P (MAP) Pulse Ox O2 Delivery O2 Flow Rate FiO2 02/07/17 05:54 98.2 65 17 128/63 (84) 94 02/06/17 18:00 97.9 73 16 100/67 (78) 96 I/O 02/06/17 02/06/17 02/06/17 02/07/17 02/07/17 02/07/17 07:00 15:00 23:00 07:00 15:00 23:00 Intake Total 480 ml 240 ml 720 ml Balance 480 ml 240 ml 720 ml Intake Oral 480 ml 240 ml 720 ml Result Diagram: 02/03/1758 02/03/17657 Other Results Laboratory Tests Test 02/05/17 08:00 02/06/17 06:14 [place] Level 1.1 MEQ/L 1.1 MEQ/L Objective Remarks GENERAL: AWAKE AND ALERT TALKATIVE AND COOPERATIVE SKIN: Warm and dry. LEFT WRIST DRESSED HEAD: Atraumatic. Normocephalic. EYES: Pupils equal and round. No scleral icterus. No injection or drainage. EOMI ENT: No nasal bleeding or discharge. Mucous membranes pink and moist.TONGUE MIDLINE NECK: Trachea midline. No JVD. SUPPLE CARDIOVASCULAR: Regular rate and rhythm. S1, S2 NO S3 OR S4 RESPIRATORY: No accessory muscle use. Clear to auscultation. Breath sounds equal bilaterally. GASTROINTESTINAL: Abdomen soft, non-tender, nondistended. Hepatic and splenic margins not palpable. MUSCULOSKELETAL: Extremities without clubbing, cyanosis, or edema. No obvious deformities. NEUROLOGICAL: Awake and alert. No obvious cranial nerve deficits. Motor grossly within normal limits. Five out of 5 muscle strength in the arms and legs. Normal speech. PSYCHIATRIC: INAppropriate mood and affect; insight and judgment ABnormal. Procedures NONE Medications and IVs Current Medications Lorazepam (Ativan) 1 mg Q6H PRN PO MODERATE TO SEVERE ANXIETY Last administered on 02/02/17t 14:06; Start 01/31/17 at 02:00 Lorazepam (Ativan Inj) 1 mg Q6H PRN IM MODERATE TO SEVERE ANXIETY; Start at 02:00 Diphenhydramine HCl (Benadryl) 50 mg Q6H PRN PO MILD ANXIETY, EPS Last administered on 02/02/17 14:07; Start 01/31/17 at 02:00 Diphenhydramine HCl (Benadryl Inj) 50 mg Q6H PRN IM MILD ANXIETY, EPS; Start 01/31/17 at 02:00 Diphenhydramine HCl (Benadryl) 50 mg HS PRN PO INSOMNIA Last administered on 21:49; Start 01/31/17 at 02:00 Diphenhydramine HCl (Benadryl Inj) 50 mg HS PRN IM INSOMNIA; Start 01/31/17 at 02:00 Trazodone HCl (Desyrel) 50 mg HS PRN PO INSOMNIA; Start 01/31/17 at 02:00; Stop 01/31/17 at 15:02; Status DC Acetaminophen (Tylenol) 650 mg Q4H PRN PO Pain 1-5 or Temp >101F; Start at 02:00; Stop 01/31/17 at 13:59; Status DC Magnesium Hydroxide (Milk Of Magnesia Liq) 30 ml DAILY PRN PO CONSTIPATION; Start 01/31/17 at 02:00; Stop 01/31/17 at 14:08; Status DC Al Hydrox/Mg Hydrox/Simethicone (Mag-Al Plus Susp Liq) 30 ml Q6H PRN PO DYSPEPSIA; Start 01/31/17 at 02:00; Stop 01/31/17 at 13:59; Status DC Nicotine (Habitrol 21 Mg Patch.24 Hr) 1 patch DAILY T-DERMAL Last administered on 02/07/17 08:44; Start 01/31/17 at 09:00 Miscellaneous Information 1 HS T-DERMAL Last administered on 02/06/17 21:00; Start 01/31/17 at 21:00 Fluoxetine HCl (PROzac) 80 mg DAILY PO Last administered on 02/07/17 08:45; Start 01/31/17 at 09:00 Lurasidone HCl (Latuda) 80 mg DAILY PO Last administered on 02/07/17 08:44; Start 01/31/17 at 09:00 Haloperidol (Haldol) 10 mg BID PO Last administered on 02/01/17 08:35; Start 01/31/17 at 09:00; Stop 02/01/17 at 10:48; Status DC Amantadine HCl (Symmetrel) 100 mg BID PO Last administered on 02/07/17 08:44 ; Start 01/31/17 at 09:00 Pramipexole Dihydrochloride (Mirapex) 0.25 mg HS PO Last administered on 21:51; Start 01/31/17 at 21:00 Pantoprazole Sodium (Protonix) 20 mg DAILY PO Last administered on 02/07/17 08:45; Start 01/31/17 at 09:00 Folic Acid (Folate) 1 mg DAILY PO Last administered on 01/31/17 09:53; Start 01/31/17 at 09:00; Stop 01/31/17 at 14:00; Status DC Furosemide (Lasix) 20 mg BID PO Last administered on 01/31/17 09:53; Start at 09:00; Stop 01/31/17 at 14:08; Status DC Potassium Chloride (KCl) 10 meq BID PO Last administered on 02/07/17 08:44; Start 01/31/17 at 09:00 [place] Carbonate ([place] Carbonate) 300 mg BID PO Last administered on 08:36; Start 01/31/17 at 09:00; Stop 02/01/17 at 10:48; Status DC Diphenhydramine HCl (Benadryl) 50 mg HS PRN PO INSOMNIA; Start 01/31/17 at 12: 45; Stop 01/31/17 at 14:10; Status DC Acetaminophen (Tylenol) 650 mg Q4H PRN PO Pain 1-5 or Temp >101F Last administered on 02/07/17 08:54; Start 01/31/17 at 12:45 Magnesium Hydroxide (Milk Of Magnesia Liq) 30 ml DAILY PRN PO CONSTIPATION; Start 01/31/17 at 12:45 Al Hydrox/Mg Hydrox/Simethicone (Mag-Al Plus Susp Liq) 30 ml Q6H PRN PO DYSPEPSIA Last administered on 02/05/17 09:26; Start 01/31/17 at 12:45 Hydroxyzine HCl (Atarax) 50 mg Q6H PRN PO ANXIETY Last administered on 17:21; Start 01/31/17 at 12:45 Amantadine HCl (Symmetrel) 100 mg BID PO ; Start 01/31/17 at 21:00; Stop at 21:00; Status DC Folic Acid (Folate) 1 mg DAILY PO Last administered on 02/07/17 08:45; Start 02/01/17 at 09:00 Furosemide (Lasix) 20 mg BID PO Last administered on 02/07/17 08:44; Start 01/31/17 at 21:00 Haloperidol (Haldol) 10 mg BID PO ; Start 01/31/17 at 21:00; Stop 01/31/17 at 21 :00; Status DC [place] Carbonate ([place] Carbonate) 300 mg BID PO ; Start 01/31/17 at 21:00; Stop 01/31/17 at 21:00; Status DC Lurasidone HCl (Latuda) 80 mg DAILY PO ; Start 02/01/17 at 09:00; Stop 02/01/17 at 09:00; Status DC Pantoprazole Sodium (Protonix) 20 mg DAILY PO ; Start 02/01/17 at 09:00; Stop 02/01/17 at 09:00; Status DC Potassium Chloride (KCl) 10 meq BID PO ; Start 01/31/17 at 21:00; Stop 01/31/17 at 21:00; Status DC Pramipexole Dihydrochloride (Mirapex) 0.25 mg HS PO ; Start 01/31/17 at 21:00; Stop 01/31/17 at 21:00; Status DC Trazodone HCl (Desyrel) 400 mg HS PO Last administered on 02/06/17 21:50; Start 01/31/17 at 21:00 Non-Formulary Medication 80 mg DAILY PO ; Start 02/01/17 at 09:00; Stop at 09:00; Status DC Haloperidol (Haldol) 10 mg DAILY@0900,2100 PO Last administered on 02/05/17 08:50; Start 02/01/17 at 21:00; Stop 02/05/17 at 13:33; Status DC [place] Carbonate (Eskalith Sr) 450 mg BID PO Last administered on 02/07/17 08:45; Start 02/01/17 at 21:00 Haloperidol (Haldol) 5 mg DAILY@1400 PO Last administered on 02/04/17 13:47; Start 02/01/17 at 14:00; Stop 02/05/17 at 13:33; Status DC Diphtheria/ Tetanus/Acell Pertussis (Boostrix Inj) 0.5 ml ONCE ONCE IM Last administered on 02/02/17 15:11; Start 02/02/17 at 14:15; Stop 02/02/17 at 14 :29; Status DC Cephalexin Monohydrate (Keflex) 500 mg Q6HR PO Last administered on 02/07/17 13:03; Start 02/02/17 at 14:15 Lactobacillus Acidophilus (Lactinex) 1 tab TID PO Last administered on 13:03; Start 02/02/17 at 18:00 Lidocaine HCl (Xylocaine 1% Inj) 10 ml NOW ONCE I-DERMAL Last administered on 02/02/17 21:15; Start 02/02/17 at 21:15; Stop 02/02/17 at 21:16; Status DC Senna/Docusate Sodium (Jia-Colace) 1 tab DAILY PRN PO CONSTIPATION; Start 02/09 at 21:00 Haloperidol (Haldol) 10 mg TID PO Last administered on 02/07/17 13:03; Start 02/05/17 at 18:00 A/P Assessment and Plan /Left hand self-inflicted laceration. Continue antibiotics. Continue dressing changes. NO signs of infection on exam. Due to time course of injury, allowed to heal by secondary intention.dry dressing to cover instead of plastic nonstick dressing. Saline if needed to remove.discussed with nursing.Continue to monitor. DW HAND SURGERY WILL CLOSE BY ITSELF BY SECONDARY INTENTION //Constipation. Laxatives ordered.continue to monitor WILL FOLLOW Discharge Planning PER PSYCHIATRY Sj Garcia DO Feb 07, 2017 15:09
[2017-02-07 17:04] VITALS: BP 152/82; PULSE 67; RESP 17; TEMP 98.1; O2SAT 98
[2017-02-07] MEDS: hydrOXYzine HCL 50 MG TAB PO PRN (20:28)
[2017-02-07] MEDS: traZODone HCL 100 MG TAB PO SCH (20:29)
[2017-02-07] MEDS: PRAMIPEXOLE DIHYDROCHLORIDE 0.25 MG TAB PO SCH (20:30)
[2017-02-07] MEDS: REMOVE OLD NICOTINE PATCH T-DERMAL SCH (21:00)
[2017-02-08] MEDS: CEPHALEXIN MONOHYDRATE 500 MG CAP PO SCH ×4 (06:00→17:14)
[2017-02-08 06:01] VITALS: BP 101/60; PULSE 62; RESP 16; TEMP 97.9; O2SAT 97
[2017-02-08] MEDS: PANTOPRAZOLE SOD 20 MG DELAYED RELEASE TAB PO SCH (08:37)
[2017-02-08] MEDS: LURASIDONE 80 MG TAB PO SCH (08:37)
[2017-02-08] MEDS: LACTOBACILLUS ACIDOPHILUS TAB PO SCH ×3 (08:37→17:14)
[2017-02-08] MEDS: POTASSIUM CHLORIDE 10 MEQ CONTROLLED RELEASE TAB PO SCH ×2 (08:38→21:15)
[2017-02-08] MEDS: FUROSEMIDE 20 MG TAB PO SCH ×2 (08:38→21:16)
[2017-02-08] MEDS: FLUoxetine HCL 20 MG CAP PO SCH (08:38)
[2017-02-08] MEDS: LITHIUM CARBONATE 450 MG CONTROLLED RELEASE TAB PO SCH ×2 (08:38→21:15)
[2017-02-08] MEDS: AMANTADINE HCL 100 MG CAP PO SCH ×2 (08:38→21:16)
[2017-02-08] MEDS: HALOPERIDOL 10 MG TAB PO SCH ×3 (08:38→17:14)
[2017-02-08] MEDS: FOLIC ACID 1 MG TAB PO SCH (08:39)
[2017-02-08] MEDS: NICOTINE 21 MG/24 HR PATCH T-DERMAL SCH (08:40)
[2017-02-08] MEDS: LORazepam 1 MG TAB PO PRN (09:08)
--- NOTE | 2017-02-08 12:12 | HHI.PR ---
Subjective Remarks NO NEW COMPLAINTS AT THIS TIME WOUND ON LEFT WRIST DRESSED NEEDS TO HEAL BY SECONDARY INTENTION 02-07 SEEN WATCHING A MOVIE NO CURRENT COMPLAINTS WOUND DRESSED 02-08 WOUND DRESSED NO NEW COMPLAINTS DW RN AND PT Objective Vitals Vital Signs Date Time Temp Pulse Resp B/P (MAP) Pulse Ox O2 Delivery O2 Flow Rate FiO2 02/08/17 06:01 97.9 62 16 101/60 (74) 97 02/07/17 17:04 98.1 67 17 152/82 (105) 98 I/O 02/07/17 02/07/17 02/07/17 02/08/17 02/08/17 02/08/17 07:00 15:00 23:00 07:00 15:00 23:00 Intake Total 720 ml Balance 720 ml Intake Oral 720 ml Other Results Laboratory Tests Test 02/06/17 06:14 [place] Level 1.1 MEQ/L Objective Remarks GENERAL: AWAKE AND ALERT TALKATIVE AND COOPERATIVE SKIN: Warm and dry. LEFT WRIST DRESSED HEAD: Atraumatic. Normocephalic. EYES: Pupils equal and round. No scleral icterus. No injection or drainage. EOMI ENT: No nasal bleeding or discharge. Mucous membranes pink and moist.TONGUE MIDLINE NECK: Trachea midline. No JVD. SUPPLE CARDIOVASCULAR: Regular rate and rhythm. S1, S2 NO S3 OR S4 RESPIRATORY: No accessory muscle use. Clear to auscultation. Breath sounds equal bilaterally. GASTROINTESTINAL: Abdomen soft, non-tender, nondistended. Hepatic and splenic margins not palpable. MUSCULOSKELETAL: Extremities without clubbing, cyanosis, or edema. No obvious deformities. NEUROLOGICAL: Awake and alert. No obvious cranial nerve deficits. Motor grossly within normal limits. Five out of 5 muscle strength in the arms and legs. Normal speech. PSYCHIATRIC: INAppropriate mood and affect; insight and judgment ABnormal. Procedures NONE Medications and IVs Current Medications Lorazepam (Ativan) 1 mg Q6H PRN PO MODERATE TO SEVERE ANXIETY Last administered on 02/08/17 09:08; Start 01/31/17 at 02:00 Lorazepam (Ativan Inj) 1 mg Q6H PRN IM MODERATE TO SEVERE ANXIETY; Start at 02:00 Diphenhydramine HCl (Benadryl) 50 mg Q6H PRN PO MILD ANXIETY, EPS Last administered on 11/10/17at 14:07; Start 01/31/17 at 02:00 Diphenhydramine HCl (Benadryl Inj) 50 mg Q6H PRN IM MILD ANXIETY, EPS; Start 01/31/17 at 02:00 Diphenhydramine HCl (Benadryl) 50 mg HS PRN PO INSOMNIA Last administered on 21:49; Start 01/31/17 at 02:00 Diphenhydramine HCl (Benadryl Inj) 50 mg HS PRN IM INSOMNIA; Start 01/31/17 at 02:00 Trazodone HCl (Desyrel) 50 mg HS PRN PO INSOMNIA; Start 01/31/17 at 02:00; Stop 01/31/17 at 15:02; Status DC Acetaminophen (Tylenol) 650 mg Q4H PRN PO Pain 1-5 or Temp >101F; Start at 02:00; Stop 01/31/17 at 13:59; Status DC Magnesium Hydroxide (Milk Of Magnesia Liq) 30 ml DAILY PRN PO CONSTIPATION; Start 01/31/17 at 02:00; Stop 01/31/17 at 14:08; Status DC Al Hydrox/Mg Hydrox/Simethicone (Mag-Al Plus Susp Liq) 30 ml Q6H PRN PO DYSPEPSIA; Start 01/31/17 at 02:00; Stop 01/31/17 at 13:59; Status DC Nicotine (Habitrol 21 Mg Patch.24 Hr) 1 patch DAILY T-DERMAL Last administered on 02/08/17 08:40; Start 01/31/17 at 09:00 Miscellaneous Information 1 HS T-DERMAL Last administered on 02/07/17 21:00; Start 01/31/17 at 21:00 Fluoxetine HCl (PROzac) 80 mg DAILY PO Last administered on 02/08/17 08:38; Start 01/31/17 at 09:00 Lurasidone HCl (Latuda) 80 mg DAILY PO Last administered on 02/08/17 08:37; Start 01/31/17 at 09:00 Haloperidol (Haldol) 10 mg BID PO Last administered on 02/01/17 08:35; Start 01/31/17 at 09:00; Stop 02/01/17 at 10:48; Status DC Amantadine HCl (Symmetrel) 100 mg BID PO Last administered on 02/08/17 08:38 ; Start 01/31/17 at 09:00 Pramipexole Dihydrochloride (Mirapex) 0.25 mg HS PO Last administered on 20:30; Start 01/31/17 at 21:00 Pantoprazole Sodium (Protonix) 20 mg DAILY PO Last administered on 02/08/17 08:37; Start 01/31/17 at 09:00 Folic Acid (Folate) 1 mg DAILY PO Last administered on 01/31/17 09:53; Start 01/31/17 at 09:00; Stop 01/31/17 at 14:00; Status DC Furosemide (Lasix) 20 mg BID PO Last administered on 01/31/17 09:53; Start at 09:00; Stop 01/31/17 at 14:08; Status DC Potassium Chloride (KCl) 10 meq BID PO Last administered on 02/08/17 08:38; Start 01/31/17 at 09:00 [place] Carbonate ([place] Carbonate) 300 mg BID PO Last administered on 08:36; Start 01/31/17 at 09:00; Stop 02/01/17 at 10:48; Status DC Diphenhydramine HCl (Benadryl) 50 mg HS PRN PO INSOMNIA; Start 01/31/17 at 12: 45; Stop 01/31/17 at 14:10; Status DC Acetaminophen (Tylenol) 650 mg Q4H PRN PO Pain 1-5 or Temp >101F Last administered on 02/07/17 08:54; Start 01/31/17 at 12:45 Magnesium Hydroxide (Milk Of Magnesia Liq) 30 ml DAILY PRN PO CONSTIPATION; Start 01/31/17 at 12:45 Al Hydrox/Mg Hydrox/Simethicone (Mag-Al Plus Susp Liq) 30 ml Q6H PRN PO DYSPEPSIA Last administered on 02/05/17 09:26; Start 01/31/17 at 12:45 Hydroxyzine HCl (Atarax) 50 mg Q6H PRN PO ANXIETY Last administered on 20:28; Start 01/31/17 at 12:45 Amantadine HCl (Symmetrel) 100 mg BID PO ; Start 01/31/17 at 21:00; Stop at 21:00; Status DC Folic Acid (Folate) 1 mg DAILY PO Last administered on 02/08/17 08:39; Start 02/01/17 at 09:00 Furosemide (Lasix) 20 mg BID PO Last administered on 02/08/17 08:38; Start 01/31/17 at 21:00 Haloperidol (Haldol) 10 mg BID PO ; Start 01/31/17 at 21:00; Stop 01/31/17 at 21 :00; Status DC [place] Carbonate ([place] Carbonate) 300 mg BID PO ; Start 01/31/17 at 21:00; Stop 01/31/17 at 21:00; Status DC Lurasidone HCl (Latuda) 80 mg DAILY PO ; Start 02/01/17 at 09:00; Stop 02/01/17 at 09:00; Status DC Pantoprazole Sodium (Protonix) 20 mg DAILY PO ; Start 02/01/17 at 09:00; Stop 02/01/17 at 09:00; Status DC Potassium Chloride (KCl) 10 meq BID PO ; Start 01/31/17 at 21:00; Stop 01/31/17 at 21:00; Status DC Pramipexole Dihydrochloride (Mirapex) 0.25 mg HS PO ; Start 01/31/17 at 21:00; Stop 01/31/17 at 21:00; Status DC Trazodone HCl (Desyrel) 400 mg HS PO Last administered on 02/07/17 20:29; Start 01/31/17 at 21:00 Non-Formulary Medication 80 mg DAILY PO ; Start 02/01/17 at 09:00; Stop at 09:00; Status DC Haloperidol (Haldol) 10 mg DAILY@0900,2100 PO Last administered on 02/05/17 08:50; Start 02/01/17 at 21:00; Stop 02/05/17 at 13:33; Status DC [place] Carbonate (Eskalith Sr) 450 mg BID PO Last administered on 02/08/17 08:38; Start 02/01/17 at 21:00 Haloperidol (Haldol) 5 mg DAILY@1400 PO Last administered on 02/04/17 13:47; Start 02/01/17 at 14:00; Stop 02/05/17 at 13:33; Status DC Diphtheria/ Tetanus/Acell Pertussis (Boostrix Inj) 0.5 ml ONCE ONCE IM Last administered on 02/02/17 15:11; Start 02/02/17 at 14:15; Stop 02/02/17 at 14 :29; Status DC Cephalexin Monohydrate (Keflex) 500 mg Q6HR PO Last administered on 02/08/17 06:00; Start 02/02/17 at 14:15 Lactobacillus Acidophilus (Lactinex) 1 tab TID PO Last administered on 08:37; Start 02/02/17 at 18:00 Lidocaine HCl (Xylocaine 1% Inj) 10 ml NOW ONCE I-DERMAL Last administered on 02/02/17 21:15; Start 02/02/17 at 21:15; Stop 02/02/17 at 21:16; Status DC Senna/Docusate Sodium (Jia-Colace) 1 tab DAILY PRN PO CONSTIPATION; Start 02/09 at 21:00 Haloperidol (Haldol) 10 mg TID PO Last administered on 02/08/17 08:38; Start 02/05/17 at 18:00 A/P Assessment and Plan /Left hand self-inflicted laceration. Continue antibiotics. Continue dressing changes. NO signs of infection on exam. Due to time course of injury, allowed to heal by secondary intention.dry dressing to cover instead of plastic nonstick dressing. Saline if needed to remove.discussed with nursing.Continue to monitor. DW HAND SURGERY WILL CLOSE BY ITSELF BY SECONDARY INTENTION //Constipation. Laxatives ordered.continue to monitor WILL FOLLOW Discharge Planning PER PSYCHIATRY Sj Garcia DO Feb 08, 2017 12:12
--- NOTE | 2017-02-08 15:32 | HHI.PYPN ---
Subjective Chief Complaint: increased depression with auditory hallucinations and suicidal ideation int Remarks Patient seen in her room with medical student Noé, patient calm cooperative continues to denies suicidality, states the voices are just about gone. Voices no longer to letter hurt or kill anybody including her sister's boyfriend. Patient states she has no thoughts of wanting to harm anybody. States she has talked with her sister and her sister's will never come back and live with her. Patient remains compliant with medications. Consider discharge tomorrow patient continues to stabilize Review of Systems Except as stated in HPI: all other systems reviewed are Neg Mental Status Examination Appearance: Disheveled Consciousness: Alert Orientation: Person, Place (at least) Motor Activity: Other (no motor abnormalities noted) Speech: Hesitant, Slow Language: Adequate Fund of Knowledge: Adequate Attention and Concentration: Other (fair) Memory: Unremarkable (grossly intact on clinical exam) Mood: Sad Affect: Other (restricted and consistent with stated mood) Thought Process & Associations: Intact Thought Content: Hallucinations Hallucination Type: Auditory (to hurt herself), Command Delusion Type: None Suicidal Ideation: No Suicidal Plan: No Suicidal Intention: No Homicidal Ideation: No Homicidal Plan: No Homicidal Intention: No Insight: Poor Judgment: Poor Results Vitals/IOs Vital Signs Date Time Temp Pulse Resp B/P (MAP) Pulse Ox O2 Delivery O2 Flow Rate FiO2 02/08/17 06:01 97.9 62 16 101/60 (74) 97 Assessment & Plan Problem List: (1) Schizoaffective disorder ICD Codes: F25.9 - Schizoaffective disorder Status: Chronic Assessment & Plan Estimated LOS: days patient will continues to improve, that hallucinations are just about gone. There no longer threatening along the patella to harm or kill anybody. He states his suicidality is gone. She is compliant medication. If she continues to improve consider discharge tomorrow Justification for Cont. Inpt. This time patient will decompensate of placed a lower level of care Discharge Planning Consider discharge tomorrow to return to living with her sister and sister's boyfriend Problem Qualifiers (1) Schizoaffective disorder: Qualified Codes: F25.0 - Schizoaffective disorder, bipolar type Jameel Sampson MD Feb 08, 2017 15:32
[2017-02-08 16:45] VITALS: BP 118/56; PULSE 73; RESP 16; TEMP 97.9; O2SAT 98
[2017-02-08] MEDS: REMOVE OLD NICOTINE PATCH T-DERMAL SCH (21:00)
[2017-02-08] MEDS: PRAMIPEXOLE DIHYDROCHLORIDE 0.25 MG TAB PO SCH (21:15)
[2017-02-08] MEDS: traZODone HCL 100 MG TAB PO SCH (21:15)
[2017-02-09] MEDS: CEPHALEXIN MONOHYDRATE 500 MG CAP PO SCH ×3 (00:22→12:00)
[2017-02-09 05:39] VITALS: BP 107/62; PULSE 66; RESP 16; TEMP 98; O2SAT 97
[2017-02-09] MEDS: NICOTINE 21 MG/24 HR PATCH T-DERMAL SCH (09:00)
[2017-02-09] MEDS: POTASSIUM CHLORIDE 10 MEQ CONTROLLED RELEASE TAB PO SCH (09:00)
[2017-02-09] MEDS ORDERED: HALO10TA PO (09:11)
[2017-02-09] MEDS ORDERED: FOLI1TAB6 PO (09:11)
[2017-02-09] MEDS ORDERED: PANT20 PO (09:11)
[2017-02-09] MEDS ORDERED: PROZ40CA PO (09:11)
[2017-02-09] MEDS ORDERED: TRAZ300T2 PO (09:11)
[2017-02-09] MEDS ORDERED: MIRA0.25 PO (09:11)
[2017-02-09] MEDS ORDERED: LURA80 PO (09:11)
[2017-02-09] MEDS ORDERED: Amantadine PO (09:11)
[2017-02-09] MEDS ORDERED: LACT PO (09:11)
[2017-02-09] MEDS ORDERED: FURO20TA PO (09:11)
[2017-02-09] MEDS ORDERED: CEPH500C PO (09:11)
[2017-02-09] MEDS ORDERED: TRAZ100T10 PO (09:11)
[2017-02-09] MEDS ORDERED: KLOR10TA PO (09:11)
[2017-02-09] MEDS ORDERED: LITH450T PO (09:11)
--- NOTE | 2017-02-09 09:21 | HHI.DS ---
Psychiatry Discharge Summary Inpatient Psychiatric care?: Yes Advance Directive: No Reason Not Provided: DOES NOT HAVE Mental Health AdvanceDirective: No Health Care Proxy: No Admission Admission Date Jan 31, 2017 at 01:36 Admission Diagnosis: (1) Schizoaffective disorder ICD Code: F25.9 - Schizoaffective disorder Brief History From Dr. Sampson's H&P: Patient is a 46-year-old obese white female comes here voluntarily with complaints of increased depression with increased command demanding auditory hallucinations, and suicidal ideation intent and plan. Patient is a client with [facility] act she did see her [facility] clinician last Sunday. Though minimized her issues. At the present time patient sitting quietly in her room counselor Trina present throughout session patient stating she has had increased depression of the past few weeks with initial and mid insomnia, depressed mood, increased crying spells, a.m. anergy, decreased appetite. Decreased concentration and attention. Increased isolation. Is also some moderate decrease in her coping skills. There are increased auditory hallucinations of a command intimidating nature. She denies any alcohol or drug use related to this. She does states would take the suicide pill if offered to her of interest a compounding factor with this is the fact that patient has lived with her sister for over a year. During that period of time patient's relationship with her sister's boyfriend also lives with them has become more difficult to the point of the sisters asked her to leave. Patient will be moving of the end of February 23 part of March to live with a friend. She states this is okay with her but she also acknowledges being somewhat abandoned by her sister. Patient also is a regular attendee of the [place] outpatient support groups. Patient states she has been has a left her Prevacid her difficulty with a mental health the behavioral issues. She has 2 adult children she has contact with one of them. At the present time patient does meet criteria for further inpatient psychiatric assessment monitoring and observation. We'll continue her on a voluntary basis she is willing to stay to get further care patient lithium level drawn late last night commitment 0.3 will repeat level in the morning. We 'll continue other medications no change through today and further observe. Hopeless to be a fairly short stay and return her to the community and to her family On my examination today: Patient seen and examined with nurse. Chart reviewed. Case discussed with nursing staff. On my examination today, the patient presents as quite anhedonic and withdrawn. She endorses 1.5 weeks of worsening depression and deprecatory auditory hallucinations along with command auditory hallucinations to self injure. She endorses ongoing suicidal ideation. She endorses sleep and appetite are decreased. No delusional material elicited. No hypomanic or manic symptoms. She is requesting discharge from the hospital, but when I ask what she would do if she were released she says "I'd probably kill myself." Past psychiatric history: Patient reports a history of depression with first hospitalization at age 15. She endorses multiple prior suicide attempts including previous attempts by hanging. Family history: The patient reports a family history of depression in her father who completed suicide by gunshot wound. Chemical dependency history: The patient denies any abuse of drugs or alcohol. Social history: Patient lives with her sister. She is with 2 children. She has 2 years of college. She is on disability. Tobacco Use In Past 30 Days: 5 or More Cigarettes/Day Alcohol Use: Monthly or Less Hospital Course Patient's hospital course was eventful in that it appears the patient's multiple some razor blades into the unit in her underwear and lacerated her left wrist somewhat superficially a few days into the hospitalization. Stating the auditory hallucinations were becoming more intense telling her to harm herself. However patient continue compliant with medications with adjustments in their Haldol dosage. The voices have since markedly diminished. She now denies suicidal or homicidal ideation. The voices are no longer telling her to kill herself or kill or harm anyone else including her sister's boyfriend. Though the voices persist and they're somewhat derogatory. She does denies suicidality is compliant with the medication she now is able contracted to no harm. She states she has been in contact with sister sister's lung have her return home. We have laceration of left wrist is healing well without problems. At this time feel patient has reached maximum benefit of this hospitalization. Patient to be discharged today with Rx 1 month, follow-up through [facility] outpatient medication services, follow-up PCP for wound management, and also follow-up of a [facility] outpatient support groups for she is been a regular participant for extended period of time. Results Blood Pressure 107 / 62 Vital Signs Date Time Temp Pulse Resp B/P (MAP) Pulse Ox O2 Delivery O2 Flow Rate FiO2 02/09/17 05:39 98.0 66 16 107/62 (77) 97 Laboratory Results Test 01/31/17 07:16 02/03/17 06:58 02/06/17 06:14 Cholesterol Level 151 MG/DL (120-200) HDL Cholesterol 43.4 MG/DL (40.0-60.0) LDL Cholesterol 87 MG/DL (0-99) Triglycerides Level 102 MG/DL (42-150) Hemoglobin A1c 5.5 % (4.3-6.0) [place] Level 1.1 MEQ/L (0.5-1.5) Summary of Procedures Assessment treatment of left wrist Pending results at discharge: No Medications # of Antipsychotic meds at D/C: 2 Appropriate >1 Antipsych meds?: 2 (the outpatient clinician may wish to slowly titrate the Haldol as patient further recovers and stabilizes) Approp Antipsych med options 1 - Minimum of three failed multiple trials of monotherapy. 2 - Documented plan to taper to monotherapy due to previous use of multiple meds OR cross-taper in progress at D/C. 3 - Documentation of augmentation of Clozapine. 4 - Justification other than those listed in allowable values 1-3, document here : Discharge Discharge Date: Feb 09, 2017 Discharge Diagnosis: (1) Schizoaffective disorder Diagnosis: Principal ICD Code: F25.9 - Schizoaffective disorder Status: Chronic Pt Condition on Discharge: Stable Discharge Disposition: Discharge Home Discharge Instructions Diet Instructions: As Tolerated, No Restrictions Activities you can perform: Regular-No Restrictions Scheduled Appointment: Amauri Godinez Discharge Time > 30 minutes Mental Status Examination Appearance: Disheveled Consciousness: Alert Orientation: Person, Place (at least) Motor Activity: Other (no motor abnormalities noted) Speech: Hesitant, Slow Language: Adequate Fund of Knowledge: Adequate Attention and Concentration: Other (fair) Memory: Unremarkable (grossly intact on clinical exam) Mood: Sad Affect: Other (restricted and consistent with stated mood) Thought Process & Associations: Intact Thought Content: Hallucinations Hallucination Type: Auditory (to hurt herself), Command Delusion Type: None Suicidal Ideation: No Suicidal Plan: No Suicidal Intention: No Homicidal Ideation: No Homicidal Plan: No Homicidal Intention: No Insight: Poor Judgment: Poor Discharge/Advance Care Plan Health Problems: (1) Schizoaffective disorder Goals to promote your health * To prevent worsening of your condition and complications * To maintain your health at the optimal level Directions to meet your goals Take your medications as prescribed Follow your dietary instruction Follow activity as directed Keep your appointments as scheduled Take your immunizations and boosters as scheduled If your symptoms worsen call your PCP, if no PCP go to Urgent Care Center or Emergency Room For 16/10 questions related to your inpatient stay or results of tests pending at discharge, please contact Dr. Jameel Sampson at Smoking is Dangerous to Your Health. Avoid second hand smoking Problem Qualifiers (1) Schizoaffective disorder: Qualified Codes: F25.0 - Schizoaffective disorder, bipolar type Jameel Sampson MD Feb 09, 2017 09:21
[2017-02-09] MEDS: HALOPERIDOL 10 MG TAB PO SCH (09:22)
[2017-02-09] MEDS: AMANTADINE HCL 100 MG CAP PO SCH (09:22)
[2017-02-09] MEDS: FLUoxetine HCL 20 MG CAP PO SCH (09:22)
[2017-02-09] MEDS: LACTOBACILLUS ACIDOPHILUS TAB PO SCH (09:22)
[2017-02-09] MEDS: FUROSEMIDE 20 MG TAB PO SCH (09:22)
[2017-02-09] MEDS: LURASIDONE 80 MG TAB PO SCH (09:23)
[2017-02-09] MEDS: PANTOPRAZOLE SOD 20 MG DELAYED RELEASE TAB PO SCH (09:23)
[2017-02-09] MEDS: LITHIUM CARBONATE 450 MG CONTROLLED RELEASE TAB PO SCH (09:23)
[2017-02-09] MEDS: FOLIC ACID 1 MG TAB PO SCH (09:23)
--- NOTE | 2017-02-09 14:22 | PD.TTN ---
Patient Problems 1. Discharge planning 2. Medication compliance 3. Knowledge deficit 4. Lack of coping skills Progress Toward Goals Provider Present: Dr. Violeta Sampson Provider Input: Patient has had an increase in Haldol medication. Patient is endorsing decreased voices. Patient is on 1:1 due to self injurious behavior. 02/09/17 patient improved, voices lessened, discharge home today Nurse(s) Input: Patient is observed to not have any behavioral problems on the unit. Patient has been compliant with medications 02/09/17 patient is compliant Psychiatric Counselors Present: Anjali Acosta [facility] Psych Therapist Input: Patient is cooperative and calm and is oriented x4. Patient endorses feelings of depression and low energy. Patient states that she is not experiencing any side effects from medications, but does seem more tired. 02/09/17 patient can return home and follows at [facility] Group Spec/RT/OT/ZAVALA Present: Esvin Martins, OT Group Spec/RT/OT/ZAVALA Input: Patient is selective with groups. 02/09/17 pleasant and cooperative and engages in group activities Kerry Sotelo LCSW Feb 09, 2017 14:22
== END 2017-02-09 11:55 | disposition home or self-care (01) | DRG 885 ==
LOC: NEPD 20:18 → NEDA 01-31 01:36 → H260 01-31 02:25
PROVIDERS: ADMIT Psychiatry & Neurology Psychiatry; ATTEND Psychiatry & Neurology Psychiatry
DX: F25.0 Schizoaffective disorder, bipolar type (principal); R45.851 Suicidal ideations; Z91.19 Patient's noncompliance with other medical treatment and regimen; I10 Essential (primary) hypertension; Z62.810 Personal history of physical and sexual abuse in childhood; K21.9 Gastro-esophageal reflux disease without esophagitis; G47.00 Insomnia, unspecified; G47.33 Obstructive sleep apnea (adult) (pediatric); F17.210 Nicotine dependence, cigarettes, uncomplicated; S61.512A Laceration without foreign body of left wrist, initial encounter; X78.8XXA Intentional self-harm by other sharp object, initial encounter; Y93.89 Activity, other specified; Y92.230 Patient room in hospital as the place of occurrence of the external cause; K59.00 Constipation, unspecified; E03.9 Hypothyroidism, unspecified; F41.8 Other specified anxiety disorders; E78.5 Hyperlipidemia, unspecified; S51.812A Laceration without foreign body of left forearm, initial encounter; Z91.5 Personal history of self-harm; Z81.8 Family history of other mental and behavioral disorders
CPT/HCPCS: 80048; 80053; 80061; 80178; 80307; 83036; 83735; 84100; 84439; 84443; 85025; 90715; Q0163

== ENCOUNTER 2017-08-19 16:27 | Observation (INO) | payer OTHER, MEDICAID ==
[~2017-08-19] VITALS: Ht 160 cm; Wt 101.8 kg
[~2017-08-19 16:27] MED LIST changes: +AMAN100T PO; -AMOX875 PO; -AMOX875T PO; +Amantadine PO; -BENZ1TAB PO; +CEPH500C PO; -CIPRHC10A EACH EAR; +CLON1TAB PO; -CORTIS10A EACH EAR; +FOLI1TAB6 PO; +FURO20TA PO; +HALO10TA PO; -HALO1TAB25 PO; -IBUP-232 PO; +KLOR10TA PO; +LACT PO; +LITH300C2 PO; +LITH450T PO; +LURA80 PO; +MIRA0.25 PO; +PANT20 PO; +PANT20TA2 PO; +POTA10CA PO; +PRAM0.25 PO; -PROZ20CA11 PO; +PROZ40CA PO; -TRAZ100 PO; +TRAZ100T10 PO; +TRAZ300T2 PO
[2017-08-19 16:31] VITALS: BP 144/78; PULSE 75; RESP 16; TEMP 97.7; O2SAT 98
[2017-08-19] MEDS ORDERED: methylPREDNISolone SOD SUCC 125 MG/2 ML VIAL IV PUSH ONE (16:45)
[2017-08-19] MEDS: RESP: ALBUTEROL 2.5 MG/IPRATROPIUM 0.5 MG NEB (SCH) INH ×2 (16:53→16:54)
[2017-08-19] MEDS ORDERED: HALO5P IM (17:10)
[2017-08-19] MEDS ORDERED: [UNRECOGNIZED DRUG - OTHER] PO (17:10)
[2017-08-19] MEDS ORDERED: FURO1TAB62 PO (17:10)
[2017-08-19] MEDS ORDERED: CARA1TAB6 PO (17:10)
[2017-08-19] MEDS ORDERED: PROP10TA6 PO (17:10)
[2017-08-19] MEDS ORDERED: CLON1 PO (17:10)
[2017-08-19] MEDS ORDERED: CYCL10TA PO (17:10)
--- NOTE | 2017-08-19 17:18 | PD ---
HPI Chief Complaint: Respiratory Symptoms Time Seen by Provider: 16:42 Travel History International Travel<30 days: No Contact w/Intl Traveler<30days: No Traveled to known affect area: No History of Present Illness HPI 47-year-old female here with cough and wheezing 2 days. Patient unsure if she has history of asthma but is reporting she is out of her albuterol inhaler. She smokes half pack of cigarettes per day. She denies fever chills. No chest pain. Reported moderate shortness of breath for the last 2 days associated with cough and wheezing. Symptom severity is moderate. No aggravating or alleviating factors. PFSH Past Medical History Asthma: Yes Bipolar Disorder: Yes Anxiety: Yes Depression: Yes Cancer: No Cardiovascular Problems: No High Cholesterol: Yes Chest Pain: Yes COPD: Yes Coronary Artery Disease: No Diabetes: No Diminished Hearing: No Endocrine: No Gastrointestinal Disorders: Yes GERD: Yes Genitourinary: No Immune Disorder: No Implanted Vascular Access Dvce: No Insomnia: Yes Musculoskeletal: No Neurologic: No Psychiatric: Yes Reproductive: No Respiratory: Yes Integumentary: Yes Immunizations Current: Yes Schizophrenia: Yes (PER DR TAPIA) Sleep Apnea: Yes Thyroid Disease: Yes Tetanus Vaccination: < 5 Years Influenza Vaccination: Yes ?: Not Menopausal: Yes : 4 Para: 2 Miscarriage: 1 : 1 Past Surgical History Section: Yes (2) Gynecologic Surgery: Yes (C SECTIONS X2) Oral Surgery: Yes Other Surgery: Yes (cyst) Social History Alcohol Use: No Tobacco Use: Yes (1 PPD) Substance Use: No Allergies-Medications (Allergen,Severity, Reaction): Coded Allergies: No Known Allergies (Verified Allergy, Unknown, 08/19/17) Reported Meds & Prescriptions Reported Meds & Active Scripts Active Trazodone (Trazodone HCl) 300 Mg Tab 300 Mg PO HS Mirapex (Pramipexole Dihydrochloride) 0.25 Mg Tab 0.25 Mg PO HS [place] Carbonate ER (S[place] Carbonate) 450 Mg Tab 450 Mg PO BID [Amantadine] 100 MG Cap 100 Mg PO BID Reported [trihexaphine] 1 Tab PO TID Klonopin (Clonazepam) 1 Mg Tab 1 Mg PO BID Propranolol (Propranolol HCl) 10 Mg Tab 10 Mg PO Q8HR Lasix (Furosemide) 20 Mg Tab 20 Mg PO DAILY Carafate (Sucralfate) 1 Gram Tab 1 Gm PO BID On empty stomach Flexeril (Cyclobenzaprine HCl) 10 Mg Tab 10 Mg PO TID Haldol Inj (Haloperidol Lactate) 5 Mg/Ml Inj 1 Unit IM MONTHLY Potassium Chloride ER (Potassium Chloride) 10 Meq Cap 10 Meq PO DAILY Latuda (Lurasidone) 80 Mg Tab 80 Mg PO DAILY Prozac (Fluoxetine HCl) 40 Mg Cap 80 Mg PO DAILY Review of Systems Except as stated in HPI: all other systems reviewed are Neg General / Constitutional: No: Fever Eyes: No: Visual changes HENT: No: Headaches Cardiovascular: No: Chest Pain or Discomfort Respiratory: Positive: Cough, Shortness of Breath, Wheezing Gastrointestinal: No: Abdominal Pain Genitourinary: No: Dysuria Musculoskeletal: No: Pain Skin: No Rash Neurologic: No: Weakness Physical Exam Narrative GENERAL: Alert and well-appearing 47-year-old female. Resting comfortably on the stretcher in no distress. SKIN: Warm and dry. HEAD: Normocephalic. EYES: No scleral icterus. No injection or drainage. NECK: Supple, trachea midline. CARDIOVASCULAR: Regular rate and rhythm without murmurs, gallops, or rubs. RESPIRATORY: Breath sounds equal bilaterally. No accessory muscle use. Moderate diffuse expiratory wheezes. GASTROINTESTINAL: Abdomen soft, non-tender, nondistended. MUSCULOSKELETAL: No cyanosis, or edema. BACK: Nontender without obvious deformity. No CVA tenderness. Data Data Last Documented VS Vital Signs Date Time Temp Pulse Resp B/P (MAP) Pulse Ox O2 Delivery O2 Flow Rate FiO2 08/19/17 18:29 78 21 138/103 (115) 95 Room Air 08/19/17 16:31 97.7 Orders Orders Iv Access Insert/Monitor (08/19/17 16:42) Chest, Single Ap (08/19/17 16:42) Methylprednisolone So Succ Inj (Solumedr (08/19/17 16:45) Albuterol-Ipratropium Neb (Duoneb Neb) (08/19/17 16:45) Complete Blood Count With Diff (08/19/17 18:17) Comprehensive Metabolic Panel (08/19/17 18:17) B-Type Natriuretic Peptide (08/19/17 18:17) Troponin I (08/19/17 18:17) Influenzae A/B Antigen (08/19/17 18:17) Electrocardiogram (08/19/17 18:17) Lactic Acid Sepsis Protocol (08/19/17 18:54) Blood Culture (08/19/17 18:54) Ceftriaxone Inj (Rocephin Inj) (08/19/17 19:00) Azithromycin Inj (Zithromax Inj) (08/19/17 19:00) Labs Laboratory Tests Test 08/19/17 16:50 White Blood Count 12.5 TH/MM3 Red Blood Count 3.84 MIL/MM3 Hemoglobin 11.3 GM/DL Hematocrit 35.0 % Mean Corpuscular Volume 91.1 FL Mean Corpuscular Hemoglobin 29.5 PG Mean Corpuscular Hemoglobin Concent 32.3 % Red Cell Distribution Width 13.6 % Platelet Count 235 TH/MM3 Mean Platelet Volume 9.3 FL Neutrophils (%) (Auto) 85.3 % Lymphocytes (%) (Auto) 9.8 % Monocytes (%) (Auto) 2.7 % Eosinophils (%) (Auto) 1.7 % Basophils (%) (Auto) 0.5 % Neutrophils # (Auto) 10.7 TH/MM3 Lymphocytes # (Auto) 1.2 TH/MM3 Monocytes # (Auto) 0.3 TH/MM3 Eosinophils # (Auto) 0.2 TH/MM3 Basophils # (Auto) 0.1 TH/MM3 CBC Comment DIFF FINAL Differential Comment Blood Urea Nitrogen 7 MG/DL Creatinine 0.88 MG/DL Random Glucose 75 MG/DL Total Protein 7.2 GM/DL Albumin 3.4 GM/DL Calcium Level 8.9 MG/DL Alkaline Phosphatase 107 U/L Aspartate Amino Transf (AST/SGOT) 14 U/L Alanine Aminotransferase (ALT/SGPT) 12 U/L Total Bilirubin 0.3 MG/DL Sodium Level 139 MEQ/L Potassium Level 3.5 MEQ/L Chloride Level 104 MEQ/L Carbon Dioxide Level 30.9 MEQ/L Anion Gap 4 MEQ/L Estimat Glomerular Filtration Rate 69 ML/MIN Troponin I LESS THAN 0.02 NG/ML B-Type Natriuretic Peptide 115 PG/ML [facility] Medical Decision Making Medical Screen Exam Complete: Yes Emergency Medical Condition: Yes Interpretation(s) EKG: Reviewed with my attending physician Dr. Granados sinus rhythm. Rate 72. CBC: Leukocytosis. WBC 12.5 CMP: No acute abnormalities Troponin: < 0.02 BNP: 115 Influenza: Negative Differential Diagnosis Asthma/COPD exacerbation, pneumonia, influenza Narrative Course 47-year-old female here with asthma/COPD exacerbation. She has notable wheezing during exam. Pulse ox 93% on room air. she was given 125 mg of IV Solu-Medrol and 3 DuoNeb treatments. Chest x-ray reveal right basilar opacity characteristic of developing airspace disease. Patient reports mild symptom improvement after DuoNeb's. She continues to have expiratory wheezing despite steroids and breathing treatment. Diagnosis Primary Impression: Pneumonia Qualified Codes: J18.1 - Lobar pneumonia, unspecified organism Additional Impression: Shortness of breath Марина Rausch [facility] August 19, 2017 17:18
--- NOTE | 2017-08-19 17:58 | RADRPT ---
EXAM DATE: 08/19/2017 5:56 PM EDT AGE/SEX: 47 years / Female INDICATIONS: Short of breath CLINICAL DATA: This is the patient's initial encounter. Patient reports that signs and symptoms have been present for 3 days and indicates a pain score of 0/10. MEDICAL/SURGICAL HISTORY: None. None. COMPARISON: [facility], CHEST SINGLE AP, 01/08/2012. . FINDINGS: A single AP view of the chest demonstrates increased density in the right lung base characteristic of developing airspace disease. Left lung is clear. Heart and mediastinal structures are stable. Osseous structures are intact. CONCLUSION: Right basilar opacity characteristic of developing airspace disease. Otherwise stable chest. Electronically signed by: Francisco Woodruff MD 08/19/2017 5:57 PM EDT
[2017-08-19 18:29] VITALS: BP 138/103; PULSE 78; RESP 21; O2SAT 95
[2017-08-19 18:33] LABS: AUTOMATED NEUTROPHIL # 10.7 TH/MM3 (1.8-7.7); BASOPHIL # 0.1 TH/MM3 (0-0.2); BASOPHIL % 0.5 % (0.0-2.0); EOSINOPHIL # 0.2 TH/MM3 (0-0.4); EOSINOPHIL % 1.7 % (0.0-4.0); HEMOGLOBIN 11.3 GM/DL (11.6-15.3); LYMPH % 9.8 % (9.0-44.0); LYMPHOCYTE # 1.2 TH/MM3 (1.0-4.8); MEAN CELL VOLUME 91.1 FL (80.0-100.0); MEAN CORPUSCULAR HEMOGLOBIN 29.5 PG (27.0-34.0); MEAN CORPUSCULAR HGB CONC 32.3 % (32.0-36.0); MEAN PLATELET VOLUME 9.3 FL (7.0-11.0); MONO % 2.7 % (0.0-8.0); MONOCYTE # 0.3 TH/MM3 (0-0.9); NEUT % 85.3 % (16.0-70.0); PLATELET COUNT 235 TH/MM3 (150-450); RED BLOOD COUNT 3.84 MIL/MM3 (4.00-5.30); RED CELL DISTRIBUTION WIDTH 13.6 % (11.6-17.2); WHITE BLOOD COUNT 12.5 TH/MM3 (4.0-11.0)
[2017-08-19 18:40] LABS: CHLORIDE 104 MEQ/L (98-107); SODIUM (NA) 139 MEQ/L (136-145)
[2017-08-19 18:43] LABS: ALBUMIN 3.4 GM/DL (3.4-5.0); BICARBONATE 30.9 MEQ/L (21.0-32.0); BLOOD UREA NITROGEN 7 MG/DL (7-18); CALCIUM 8.9 MG/DL (8.5-10.1); GLUCOSE,RANDOM 75 MG/DL (74-106)
[2017-08-19 18:46] LABS: ALT (GPT) 12 U/L (10-53); AST (GOT) 14 U/L (15-37); CREATININE 0.88 MG/DL (0.50-1.00); GLOMERULAR FILTRATION RATE 69 ML/MIN (>89)
[2017-08-19 18:48] LABS: TOTAL BILIRUBIN ADULT 0.3 MG/DL (0.2-1.0); TOTAL PROTEIN 7.2 GM/DL (6.4-8.2)
[2017-08-19 18:49] LABS: ALKALINE PHOSPHATASE 107 U/L (45-117)
[2017-08-19 18:51] LABS: TROPONIN I LESS THAN 0.02 NG/ML (0.02-0.05)
[2017-08-19] MEDS ORDERED: AZITHROMYCIN INJ 500 MG in SODIUM CHLOR 0.9% 250 ML INJ 250 ML IV ONE (19:00)
[2017-08-19] MEDS ORDERED: cefTRIAXone INJ 1,000 MG in SODIUM CHLORIDE 0.9% INJ 100 ML IV ONE (19:00)
[2017-08-19] MEDS ORDERED: RESP: ALBUTEROL 2.5 MG/IPRATROPIUM 0.5 MG NEB (PRN) NEB (19:15)
[2017-08-19 19:28] LABS: LACTIC ACID SEPSIS PROTOCOL 2.6 mmol/L (0.4-2.0)
[2017-08-19 19:51] VITALS: BP 135/65; TEMP 98.2
[2017-08-19 20:56] VITALS: BP 128/68; PULSE 80; RESP 18; TEMP 97.6; O2SAT 92
[2017-08-19] MEDS: SUCRALFATE 1 GM TAB PO SCH (21:00)
[2017-08-19] MEDS: clonazePAM 1 MG TAB PO SCH (22:06)
[2017-08-19] MEDS: PRAMIPEXOLE DIHYDROCHLORIDE 0.25 MG TAB PO SCH (22:06)
[2017-08-19] MEDS: traZODone HCL 100 MG TAB PO SCH (22:06)
[2017-08-19] MEDS: guaiFENesin E.R. 600 MG TAB PO SCH (22:06)
[2017-08-19] MEDS: PROPRANOLOL HCL 10 MG TAB PO SCH (22:06)
[2017-08-19] MEDS: LITHIUM CARBONATE 450 MG CONTROLLED RELEASE TAB PO SCH (22:16)
[2017-08-19] MEDS: BUDESONIDE-FORMOTEROL 160/4.5 MCG INHALER INH SCH (22:17)
[2017-08-19] MEDS: methylPREDNISolone SOD SUCC 40 MG/1 ML VIAL IV PUSH SCH (22:51)
[2017-08-20] VITALS (7 sets, daily range): BP systolic 115–129; BP diastolic 66–80; PULSE 65–70; RESP 19–20; TEMP 96.1–97.3; O2SAT 92–95
[2017-08-20] MEDS: methylPREDNISolone SOD SUCC 40 MG/1 ML VIAL IV PUSH SCH ×4 (06:01→22:27)
[2017-08-20] MEDS: PROPRANOLOL HCL 10 MG TAB PO SCH ×3 (06:02→22:25)
[2017-08-20] MEDS ORDERED: RESP: ALBUTEROL 2.5 MG/IPRATROPIUM 0.5 MG NEB (PRN) NEB (08:00)
[2017-08-20] MEDS: BUDESONIDE-FORMOTEROL 160/4.5 MCG INHALER INH SCH ×2 (08:01→22:25)
[2017-08-20] MEDS: CYCLOBENZAPRINE HCL 10 MG TAB PO SCH ×3 (08:02→17:42)
[2017-08-20] MEDS: FUROSEMIDE 20 MG TAB PO SCH (08:02)
[2017-08-20] MEDS: LURASIDONE 40 MG TAB PO SCH (08:03)
[2017-08-20] MEDS: FLUoxetine HCL 20 MG CAP PO SCH (08:03)
[2017-08-20] MEDS: SUCRALFATE 1 GM TAB PO SCH ×2 (08:03→21:00)
[2017-08-20] MEDS: LITHIUM CARBONATE 450 MG CONTROLLED RELEASE TAB PO SCH ×2 (08:03→22:24)
[2017-08-20] MEDS: guaiFENesin E.R. 600 MG TAB PO SCH ×2 (08:03→22:25)
[2017-08-20] MEDS: clonazePAM 1 MG TAB PO SCH ×2 (08:03→22:24)
--- NOTE | 2017-08-20 08:11 | EKG ---
Date Performed: 08/19/2017 Time Performed: 18:37:03 PTAGE: 47 years EKG: Sinus rhythm LOW QRS VOLTAGE IN PRECORDIAL LEADS T-WAVE ABNORMALITY, CONSIDER ANTEROLATERAL ISCHEMIA ABNORMAL ECG PREVIOUS TRACING : 06/08/2014 08.22 Compared to previous tracing, anterolateral T wave inversio n is now present. DOCTOR: Choco Orellana Interpretating Date/Time 08/20/2017 08:10:59
--- NOTE | 2017-08-20 08:18 | HHI.HP ---
[facility] Phys[facility] Non-Staff Admission Diagnosis PNA, SOB Diagnoses: (1) Pneumonia Diagnosis: Principal (2) Shortness of breath Diagnosis: Principal Chief Complaint: Shortness of breath and dyspnea Travel History International Travel<30 Days: No Contact w/Intl Traveler <30 Da: No Traveled to Known Affected Are: No History of Present Illness Written by Rodolfo Davis, acting as scribe for Dr. Fermin on 08/20/17 at 08: 17. 47-year-old female with known history of hypertension, hyperlipidemia , obstructive sleep apnea, chronic tobacco use, schizophrenia, bipolar disorder , hypothyroidism who presented to the emergency department because of 3 day history of cough with yellow phlegm production, chest congestion, shortness of breath, fatigue. Because the patient was not getting any better she came to the emergency department for evaluation. Patient had workup done and chest x- ray did indicate some developing right lung airspace disease. Patient did have some mild lactic acidosis. Patient was afebrile, no significant leukocytosis. Patient was recommended observation for further evaluation and management. Patient does have a long-standing history of tobacco use, questionable asthma versus COPD. She states that she has been out of her inhaler for approximately 3 months. Patient also has obstructive sleep apnea in which she is supposed to use a CPAP, however she has not been using it because she states that she has to take it to the parking lot spotter to get it calibrated. Upon evaluating patient this morning she states that she is feeling much better. Patient has not required any oxygen to maintain O2 saturations. Review of Systems Constitutional: COMPLAINS OF: Fatigue Respiratory: COMPLAINS OF: Cough, Sputum production, Shortness of breath Except as stated in HPI: all other systems reviewed are Neg Past Family Social History Past Medical History Hypertension Hyperlipidemia Bipolar disorder Schizophrenia Hypothyroidism Obstructive sleep apnea History of noncompliance Past Surgical History Abscess removal from her chest Reported Medications Reported Meds & Active Scripts Active Trazodone (Trazodone HCl) 300 Mg Tab 300 Mg PO HS Mirapex (Pramipexole Dihydrochloride) 0.25 Mg Tab 0.25 Mg PO HS Cetronia Carbonate ER (Cetronia Carbonate) 450 Mg Tab 450 Mg PO BID [Amantadine] 100 MG Cap 100 Mg PO BID Reported [trihexaphine] 1 Tab PO TID Klonopin (Clonazepam) 1 Mg Tab 1 Mg PO BID Propranolol (Propranolol HCl) 10 Mg Tab 10 Mg PO Q8HR Lasix (Furosemide) 20 Mg Tab 20 Mg PO DAILY Carafate (Sucralfate) 1 Gram Tab 1 Gm PO BID On empty stomach Flexeril (Cyclobenzaprine HCl) 10 Mg Tab 10 Mg PO TID Haldol Inj (Haloperidol Lactate) 5 Mg/Ml Inj 1 Unit IM MONTHLY Potassium Chloride ER (Potassium Chloride) 10 Meq Cap 10 Meq PO DAILY Latuda (Lurasidone) 80 Mg Tab 80 Mg PO DAILY Prozac (Fluoxetine HCl) 40 Mg Cap 80 Mg PO DAILY Allergies: Coded Allergies: No Known Allergies (Verified Allergy, Unknown, 08/19/17) Family History Family history is reviewed and patient states that both her mother and father are . She does not indicate any history of heart disease, cancer, seizures, stroke Social History Patient continues smoke a half a pack of cigarettes a day since she was 16 years old. She denies any alcohol or illicit drug Physical Exam Vital Signs Vital Signs Date Time Temp Pulse Resp B/P (MAP) Pulse Ox O2 Delivery O2 Flow Rate FiO2 08/20/17 00:10 97.1 70 20 125/71 (89) 93 08/19/17 20:56 97.6 80 18 128/68 (88) 92 08/19/17 19:51 98.2 78 22 135/65 (88) 94 08/19/17 18:29 78 21 138/103 (115) 95 Room Air 08/19/17 16:35 98 Room Air 08/19/17 16:31 97.7 75 16 144/78 (100) 98 Physical Exam GENERAL: Well-developed, well-nourished, in no acute distress. alert and orientated HEENT: Head is normocephalic without any lesions or masses noted. Facial features are symmetric. Eyes: Pupils equal round reactive to light. Extraocular muscles are intact. Conjunctivae were clear. Oropharyngeal: Pharynx without any erythema edema. Tongue is midline without deviation. Buccal mucosa is moist without any masses or lesions NECK: Supple without any masses. Trachea midline no deviation. No JVD, no bruits are appreciated CARDIAC: Regular rhythm, regular rate. S1/S2 are heard. No murmurs gallops or rubs. LUNGS: Upper airway does indicate some coarse rhonchi, there might be some coarse wheeze at the end expiration. No rales. No use of accessory muscles on inspiration or expiration. ABDOMEN: Soft, nontender. Nondistended. Bowel sounds heard in all 4 quadrants. No organomegaly or masses. Negative rebound, negative guarding EXTREMITIES: No edema, pulses are equal bilaterally. No cyanosis or clubbing NEUROLOGY: Mood and affect appear appropriate. Cranial nerves II through XII grossly intact. Muscle strength 5/5 in upper and lower extremities bilaterally. Deep tendon reflexes are 2+ in upper and lower extremities bilaterally. Laboratory Laboratory Tests Test 08/19/17 16:50 08/19/17 19:00 08/19/17 19:54 08/19/17 21:18 White Blood Count 12.5 Red Blood Count 3.84 Hemoglobin 11.3 Hematocrit 35.0 Mean Corpuscular Volume 91.1 Mean Corpuscular Hemoglobin 29.5 Mean Corpuscular Hemoglobin Concent 32.3 Red Cell Distribution Width 13.6 Platelet Count 235 Mean Platelet Volume 9.3 Neutrophils (%) (Auto) 85.3 Lymphocytes (%) (Auto) 9.8 Monocytes (%) (Auto) 2.7 Eosinophils (%) (Auto) 1.7 Basophils (%) (Auto) 0.5 Neutrophils # (Auto) 10.7 Lymphocytes # (Auto) 1.2 Monocytes # (Auto) 0.3 Eosinophils # (Auto) 0.2 Basophils # (Auto) 0.1 CBC Comment DIFF FINAL Differential Comment Blood Urea Nitrogen 7 Creatinine 0.88 Random Glucose 75 Total Protein 7.2 Albumin 3.4 Calcium Level 8.9 Alkaline Phosphatase 107 Aspartate Amino Transf (AST/SGOT) 14 Alanine Aminotransferase (ALT/SGPT) 12 Total Bilirubin 0.3 Sodium Level 139 Potassium Level 3.5 Chloride Level 104 Carbon Dioxide Level 30.9 Anion Gap 4 Estimat Glomerular Filtration Rate 69 Troponin I LESS THAN 0.02 B-Type Natriuretic Peptide 115 Lactic Acid Level 2.6 2.6 Cetronia Level 0.4 Date/Time Source Procedure Growth Status 08/19/17 19:00 Blood Peripheral Aerobic Blood Culture Pending Received 08/19/17 19:00 Blood Peripheral Anaerobic Blood Culture Pending Received 08/19/17 18:20 Nasal Aspirate Influenza Types A,B Antigen (ESTEFANY) - Final NEGATIVE FOR FLU A AND B ANTIGEN.... Complete Result Diagram: 08/19/17 1650 08/19/17 1650 Imaging Last Impressions Chest X-Ray 08/19/17 1642 Signed Impressions: CONCLUSION: Right basilar opacity characteristic of developing airspace disease. Otherwise stable chest. Caprini VTE Risk Assessment Caprini VTE Risk Assessment: Mod/High Risk (score >= 2) Caprini Risk Assessment Model Point Value = 1 Point Value = 2 Point Value = 3 Point Value = 5 Age 41-60 Minor surgery BMI > 25 kg/m2 Swollen legs Varicose veins or History of unexplained or recurrent spontaneous Oral contraceptives or hormone replacement Sepsis (< 1 month) Serious lung disease, including pneumonia (< 1 month) Abnormal pulmonary function Acute myocardial infarction Congestive heart failure (< 1 month) History of inflammatory bowel disease Medical patient at bed rest Age 61-74 Arthroscopic surgery Major open surgery (> 45 min) Laparoscopic surgery (> 45 min) Malignancy Confined to bed (> 72 hours) Immobilizing plaster cast Central venous access Age >= 75 History of VTE Family history of VTE Factor V Leiden Prothrombin [id number] Lupus anticoagulant Anticardiolipin antibodies Elevated serum homocysteine Heparin-induced thrombocytopenia Other congenital or acquired thrombophilia Stroke (< 1 month) Elective arthroplasty Hip, pelvis, or leg fracture Acute spinal cord injury (< 1 month) Prophylaxis Regimen Total Risk Factor Score Risk Level Prophylaxis Regimen 0-1 Low Early ambulation 2 Moderate Order ONE of the following: *Sequential Compression Device (SCD) *Heparin 5000 units SQ BID 3-4 Higher Order ONE of the following medications: *Heparin 5000 units SQ TID *Enoxaparin/Lovenox 40 mg SQ daily (WT < 150 kg, CrCl > 30 mL/min) *Enoxaparin/Lovenox 30 mg SQ daily (WT < 150 kg, CrCl > 10-29 mL/min) *Enoxaparin/Lovenox 30 mg SQ BID (WT < 150 kg, CrCl > 30 mL/min) AND/OR *Sequential Compression Device (SCD) 5 or more Highest Order ONE of the following medications: *Heparin 5000 units SQ TID (Preferred with Epidurals) *Enoxaparin/Lovenox 40 mg SQ daily (WT < 150 kg, CrCl > 30 mL/min) *Enoxaparin/Lovenox 30 mg SQ daily (WT < 150 kg, CrCl > 10-29 mL/min) *Enoxaparin/Lovenox 30 mg SQ BID (WT < 150 kg, CrCl > 30 mL/min) AND *Sequential Compression Device (SCD) Assessment and Plan Assessment and Plan Community acquired pneumonia with possible underlying mild COPD/asthma exacerbation -Chest x-ray does show right basilar opacity characteristic of developing airspace disease -Patient has been noncompliant with her outpatient medication and treatment. Has not had her inhaler for approximately 3 months, patient has not been using her CPAP -Patient was started on Rocephin and Zithromax for community acquired pneumonia -Continue Solu-Medrol 40 mg IV every 6 hours -Continue Symbicort -Continue guaifenesin -Start duo nebs every 6 hours while awake and continue every 2 hours as needed -Patient with mild lactic acidosis, will continue to monitor Bipolar disorder, schizophrenia -Home medications have been continued Hypertension -Home medication continued DVT prevention -Subcutaneous Lovenox This note was transcribed by deirdre Davis. I, Dr. Rafa Fermin personally performed the history, physical exam, and medical decision making; and confirmed the accuracy of the information in the transcribed note. Authenticated by Dr. Rafa Fermin on 08/20/17 at 08:17. Code Status Full code Discussed Condition With Patient Problem Qualifiers (1) Pneumonia: Qualified Codes: J18.1 - Lobar pneumonia, unspecified organism Rodolfo Davis August 20, 2017 08:18 Rafa Fermin MD August 20, 2017 08:18
[2017-08-20] MEDS: ENOXAPARIN SODIUM 40 MG/0.4 ML SYRINGE SQ SCH (08:48)
[2017-08-20] MEDS: RESP: ALBUTEROL 2.5 MG/IPRATROPIUM 0.5 MG NEB (SCH) NEB ×3 (09:20→19:27)
[2017-08-20] MEDS ORDERED: NEBULIZER1 MI1 (10:47)
[2017-08-20] MEDS ORDERED: Budeson-Formot 160-4.5 Mcg Inh INH (10:48)
[2017-08-20] MEDS ORDERED: Albuterol-Ipratropium Neb NEB (10:48)
[2017-08-20] MEDS: BENZONATATE 100 MG CAP PO PRN (17:52)
[2017-08-20] MEDS ORDERED: ONDANSETRON HCL 4 MG/2 ML VIAL IV PUSH PRN (18:00)
[2017-08-20] MEDS ORDERED: DOCUSATE SODIUM 100 MG CAP PO PRN (18:00)
[2017-08-20] MEDS ORDERED: MAGNESIUM HYDROXIDE SUSP 30 ML CUP PO PRN (18:00)
[2017-08-20] MEDS ORDERED: CALCIUM CARBONATE 500 MG CHEWABLE TAB CHEW PRN (18:00)
[2017-08-20] MEDS ORDERED: ACETAMINOPHEN 325 MG TAB PO PRN (18:00)
[2017-08-20] MEDS ORDERED: AZITHROMYCIN INJ 500 MG in SODIUM CHLOR 0.9% 250 ML INJ 250 ML IV SCH (19:00)
[2017-08-20] MEDS ORDERED: cefTRIAXone INJ 1,000 MG in SODIUM CHLORIDE 0.9% INJ 100 ML IV SCH (19:00)
[2017-08-20] MEDS: traZODone HCL 100 MG TAB PO SCH (22:24)
[2017-08-20] MEDS: PRAMIPEXOLE DIHYDROCHLORIDE 0.25 MG TAB PO SCH (22:25)
[2017-08-21 00:14] VITALS: BP 119/72; PULSE 67; RESP 20; TEMP 96.2; O2SAT 92
[2017-08-21] MEDS: PROPRANOLOL HCL 10 MG TAB PO SCH (05:17)
[2017-08-21] MEDS: methylPREDNISolone SOD SUCC 40 MG/1 ML VIAL IV PUSH SCH ×2 (05:17→11:29)
[2017-08-21] MEDS: BENZONATATE 100 MG CAP PO PRN ×2 (05:21→11:29)
[2017-08-21] MEDS: RESP: ALBUTEROL 2.5 MG/IPRATROPIUM 0.5 MG NEB (SCH) NEB (07:20)
[2017-08-21 07:52] VITALS: BP 123/67; PULSE 61; RESP 20; TEMP 98.4; O2SAT 95
[2017-08-21] MEDS: BUDESONIDE-FORMOTEROL 160/4.5 MCG INHALER INH SCH (08:20)
[2017-08-21] MEDS: guaiFENesin E.R. 600 MG TAB PO SCH (08:21)
[2017-08-21] MEDS: LITHIUM CARBONATE 450 MG CONTROLLED RELEASE TAB PO SCH (08:21)
[2017-08-21] MEDS: CYCLOBENZAPRINE HCL 10 MG TAB PO SCH (08:21)
[2017-08-21] MEDS: FUROSEMIDE 20 MG TAB PO SCH (08:21)
[2017-08-21] MEDS: clonazePAM 1 MG TAB PO SCH (08:21)
[2017-08-21] MEDS: SUCRALFATE 1 GM TAB PO SCH (08:22)
[2017-08-21] MEDS: LURASIDONE 40 MG TAB PO SCH (08:22)
[2017-08-21] MEDS: FLUoxetine HCL 20 MG CAP PO SCH (08:22)
[2017-08-21] MEDS: ENOXAPARIN SODIUM 40 MG/0.4 ML SYRINGE SQ SCH (08:23)
--- NOTE | 2017-08-21 09:32 | HHI.PR ---
Subjective Remarks Follow-up community acquired pneumonia along with COPD exacerbation August 21, 2017-patient seen and examined, reports significant improvement of shortness of breath and denies any chest pain. Currently afebrile. Looking for discharge home today. Objective Vitals Vital Signs Date Time Temp Pulse Resp B/P (MAP) Pulse Ox O2 Delivery O2 Flow Rate FiO2 08/21/17 07:52 98.4 61 20 123/67 (85) 95 08/21/17 00:14 96.2 67 20 119/72 (88) 92 08/20/17 20:00 96.1 66 20 129/80 (96) 92 08/20/17 19:27 94 21 08/20/17 16:00 97.3 67 19 127/71 (89) 93 08/20/17 12:00 96.6 69 19 115/68 (84) 94 I/O 08/20/17 08/20/17 08/20/17 08/21/17 08/21/17 08/21/17 07:00 15:00 23:00 07:00 15:00 23:00 Intake Total 240 ml 840 ml 720 ml 120 ml Balance 240 ml 840 ml 720 ml 120 ml Intake Oral 240 ml 840 ml 720 ml 120 ml # Voids 5 2 # Bowel Movements 1 Result Diagram: 08/19/17 1650 08/19/17 1650 Imaging Last Impressions Chest X-Ray 08/19/17 1642 Signed Impressions: CONCLUSION: Right basilar opacity characteristic of developing airspace disease. Otherwise stable chest. Objective Remarks GENERAL: NAD SKIN: Warm and dry. HEAD: Normocephalic. EYES: No scleral icterus. No injection or drainage. NECK: Supple, trachea midline. No JVD or lymphadenopathy. CARDIOVASCULAR: Regular rate and rhythm without murmurs, gallops, or rubs. RESPIRATORY: Breath sounds equal bilaterally. No accessory muscle use. GASTROINTESTINAL: Abdomen soft, non-tender, nondistended. MUSCULOSKELETAL: No cyanosis, or edema. BACK: Nontender without obvious deformity. No CVA tenderness. A/P Problem List: (1) Pneumonia ICD Code: J18.9 - Pneumonia, unspecified organism Status: Acute (2) Shortness of breath ICD Code: R06.02 - Shortness of breath Status: Acute Assessment and Plan 47-year-old female with Community acquired pneumonia with possible underlying mild COPD/asthma exacerbation -Chest x-ray does show right basilar opacity characteristic of developing airspace disease -Patient has been noncompliant with her outpatient medication and treatment. Has not had her inhaler for approximately 3 months, patient has not been using her CPAP -Currently on Rocephin and Zithromax for community acquired pneumonia. With switch to p.o. antibiotic azithromycin on discharge -Continue Solu-Medrol 40 mg IV every 6 hours, with switched to p.o. prednisone on discharge -Continue Symbicort -Continue guaifenesin -Continue duo nebs every 6 hours while awake and continue every 2 hours as needed Bipolar disorder, schizophrenia -Home medications have been continued Hypertension -Home medication continued DVT prevention -Subcutaneous Lovenox Discharge Planning Discharge patient to home Condition on discharge: Improved Regular Diet as tolerated Ad Lilli activity Rx written: See EMR Follow-up with primary care physician in 1 week Problem Qualifiers (1) Pneumonia: Qualified Codes: J18.1 - Lobar pneumonia, unspecified organism Rafa Fermin MD August 21, 2017 09:32
[2017-08-21] MEDS ORDERED: PROP10TA6 PO (09:36)
[2017-08-21] MEDS ORDERED: SPIRCAP INH (09:36)
[2017-08-21] MEDS ORDERED: AZIT250T3 PO (09:36)
[2017-08-21] MEDS ORDERED: FURO20TA PO (09:36)
== END 2017-08-21 11:50 | disposition home or self-care (01) ==
LOC: PHEFT 16:27 → PHEDA 19:22 → PH3A 20:06
PROVIDERS: ADMIT Hospitalist; ATTEND Hospitalist
DX: J44.0 Chronic obstructive pulmonary disease with (acute) lower respiratory infection (principal); J18.1 Lobar pneumonia, unspecified organism; J44.1 Chronic obstructive pulmonary disease with (acute) exacerbation; E87.2 Acidosis; I10 Essential (primary) hypertension; E78.5 Hyperlipidemia, unspecified; G47.33 Obstructive sleep apnea (adult) (pediatric); E03.9 Hypothyroidism, unspecified; R94.31 Abnormal electrocardiogram [ECG] [EKG]; K21.9 Gastro-esophageal reflux disease without esophagitis; F41.9 Anxiety disorder, unspecified; F31.9 Bipolar disorder, unspecified; F20.9 Schizophrenia, unspecified; F17.210 Nicotine dependence, cigarettes, uncomplicated; Z79.899 Other long term (current) drug therapy; Z91.19 Patient's noncompliance with other medical treatment and regimen
CPT/HCPCS: 71045; 80053; 80178; 83605; 83880; 84484; 85025; 87040; 87804; 93005; 94640; 94664; 94667; 94668; 96365; 96366; 96367; 96372; 96375; 96376; 99285; G0378; J0456; J0696; J1650; J2920; J2930; J7050